=== PATIENT | male | born 1985 | race Caucasian/White ===

== ENCOUNTER 2017-07-23 04:36 | Inpatient (IN) | payer OTHER ==
[~2017-07-23] VITALS: Ht 185.4 cm
[~2017-07-23 04:36] MED LIST: IBUP800T23 PO; LORTA5 PO; ULTR50TA PO
[2017-07-23 04:39] VITALS: BP 113/66; PULSE 85; RESP 18; TEMP 98.1; O2SAT 97
[2017-07-23] MEDS ORDERED: GENTAMICIN 80 MG PREMIX 100 ML IV ONE (04:45)
[2017-07-23] MEDS ORDERED: ceFAZolin 2 GM PREMIX 50 ML IV ONE (04:45)
[2017-07-23] MEDS ORDERED: TETANUS/DIPHTHERIA TOXOID ADULT 0.5 ML VIAL IM ONE (04:45)
[2017-07-23 04:49] VITALS: O2SAT 97
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
[2017-07-23] MEDS ORDERED: MORPHINE SULFATE 4 MG/ML INJ IV PUSH ONE (05:00)
[2017-07-23] MEDS ORDERED: SODIUM CHLOR 0.9% 1000 ML INJ 1,000 ML IV ONE (05:00)
[2017-07-23 05:09] LABS: AUTOMATED NEUTROPHIL # 17.9 TH/MM3 (1.8-7.7); BASOPHIL # 0.1 TH/MM3 (0-0.2); BASOPHIL % 0.3 % (0.0-2.0); EOSINOPHIL # 0.2 TH/MM3 (0-0.4); EOSINOPHIL % 0.8 % (0.0-4.0); HEMATOCRIT 39.6 % (39.0-51.0); HEMOGLOBIN 13.2 GM/DL (13.0-17.0); LYMPH % 16.7 % (9.0-44.0); MEAN CELL VOLUME 87.5 FL (80.0-100.0); MEAN CORPUSCULAR HEMOGLOBIN 29.2 PG (27.0-34.0); MEAN CORPUSCULAR HGB CONC 33.4 % (32.0-36.0); MEAN PLATELET VOLUME 8.2 FL (7.0-11.0); MONO % 7.1 % (0.0-8.0); MONOCYTE # 1.7 TH/MM3 (0-0.9); NEUT % 75.1 % (16.0-70.0); PLATELET COUNT 338 TH/MM3 (150-450); RED BLOOD COUNT 4.53 MIL/MM3 (4.50-5.90); RED CELL DISTRIBUTION WIDTH 13.3 % (11.6-17.2); WHITE BLOOD COUNT 23.8 TH/MM3 (4.0-11.0)
[2017-07-23 05:18] LABS: PROTHROMBIN TIME - PATIENT 10.3 SEC (9.8-11.6)
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
[2017-07-23 06:00] VITALS: BP 115/67; PULSE 100; RESP 16; O2SAT 98
[2017-07-23] MEDS ORDERED: GENTAMICIN INJ 80 MG in SODIUM CHLORIDE 0.9% INJ 100 ML IV ONE (06:15)
[2017-07-23] MEDS ORDERED: LACTATED RINGER'S 1000 ML INJ 1,000 ML IV SCH (06:22)
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
[2017-07-23] MEDS ORDERED: CHLORHEXIDINE GLUCONATE 2 % 1 PACK (2 CLOTHS) TOP PRN (06:30)
[2017-07-23] MEDS ORDERED: HYDROmorphone HCL PF 0.5 MG/0.5 ML SYRINGE IV PRN (06:30)
[2017-07-23] MEDS ORDERED: NURSING INFORMATION XX SCH (06:30)
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
[2017-07-23] MEDS ORDERED: GENTAMICIN SULFATE 80 MG/2 ML VIAL ONE ×3 (06:36→09:39)
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
[2017-07-23] MEDS ORDERED: METOPROLOL TARTRATE 25 MG TAB PO PRN (07:15)
[2017-07-23] MEDS ORDERED: LACTATED RINGER'S 1000 ML IV PRN (07:15)
[2017-07-23] MEDS ORDERED: SODIUM CHLORID 0.9% 500 ML IV PRN (07:15)
[2017-07-23] MEDS ORDERED: HYDROmorphone HCL PF 2 MG/ML VIAL ONE (07:21)
[2017-07-23] MEDS ORDERED: ACETAMINOPHEN 1000 MG/100 ML 100 ML IV ONE (07:21)
[2017-07-23] MEDS ORDERED: fentaNYL CITRATE 250 MCG/5 ML AMP ONE (07:21)
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
[2017-07-23] MEDS ORDERED: BUPIVACAINE HCL PF 0.5% 30 ML VIAL ONE (07:42)
[2017-07-23] MEDS ORDERED: cefTRIAXone INJ 1,000 MG in SODIUM CHLORIDE 0.9% INJ 100 ML IV SCH (08:00)
[2017-07-23] MEDS ORDERED: DOCUSATE SODIUM 100 MG CAP PO SCH (09:00)
[2017-07-23] MEDS ORDERED: Post-op Orders (for Pharmacy) XX ONE (10:45)
[2017-07-23] MEDS ORDERED: diphenhydrAMINE HCL 25 MG CAP PO PRN (10:45)
--- NOTE | 2017-07-23 10:56 | HHI.PR ---
Immediate Post Op Note Procedure Date: July 23, 2017 Pre Op Diagnosis: LEFT FOOT: First metatarsal head fracture Second MPJ dislocation, second PIPJ dislocation Third MPJ dislocation, third proximal phalanx fracture Fourth MPJ dislocation Fifth MPJ dislocation Fifth metatarsal shaft fracture Post Op Diagnosis: LEFT FOOT: First metatarsal head fracture Second MPJ dislocation, second PIPJ dislocation Third MPJ dislocation, third proximal phalanx fracture Fourth MPJ dislocation Fifth MPJ dislocation Fifth metatarsal shaft fracture Surgeon: Stephanie Frederick Early Morning Babysitter(s): None Procedure: Open reduction internal fixation/external fixation of left foot fractures Findings: None Additional Information: None Complications: None Specimen(s) removed: None Anesthesia: General Drains: Auberry IVF Patient to: PACU Patient Condition: Stephanie Sainz DPM July 23, 2017 10:56
[2017-07-23] MEDS ORDERED: MIDAZOLAM HCL 2 MG/2 ML VIAL ONE (10:59)
[2017-07-23] MEDS ORDERED: MORPHINE SULFATE 4 MG/ML INJ ONE (11:00)
[2017-07-23] MEDS ORDERED: MEPERIDINE HCL 50 MG/ML VIAL ONE (11:05)
[2017-07-23] MEDS ORDERED: *morphine SULFATE 10 MG/ML PERIprocedure ONLY ONE (11:37)
[2017-07-23] MEDS ORDERED: LIDOCAINE HCL 1% PF 5 ML SYRINGE OTHER ONE (12:00)
[2017-07-23] MEDS ORDERED: PHENYLEPH/NS 1000 MCG/10 ML SYR IV ONE (12:00)
[2017-07-23] MEDS ORDERED: ONDANSETRON HCL 4 MG/2 ML VIAL IV PUSH ONE (12:00)
[2017-07-23] MEDS ORDERED: ROCURONIUM INJ 50 MG/5 ML SYRINGE IV PUSH ONE (12:00)
[2017-07-23] MEDS ORDERED: DEXAMETHASONE SOD PHOS 4 MG/ML VIAL IV ONE (12:00)
[2017-07-23] MEDS ORDERED: PROPOFOL 200 MG/20 ML AMP IV ONE (12:00)
[2017-07-23] MEDS ORDERED: LACTATED RINGER'S 1000 ML INJ 1,000 ML IV ONE (12:00)
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
[2017-07-23] MEDS ORDERED: DO NOT ADM ANY ANTICOAGULANT DRUGS PRN (12:15)
--- NOTE | 2017-07-23 14:06 | RADRPT ---
EXAM DATE: 07/23/2017 1:33 PM EDT AGE/SEX: 32 years / Male INDICATIONS: ORIF left foot. CLINICAL DATA: This is the patient's initial encounter. Patient reports that signs and symptoms have been present for 1 day and indicates a pain score of Nonresponsive. MEDICAL/SURGICAL HISTORY: Non-responsive. Non-responsive. COMPARISON: [facility] [place], FOOT LEFT COMPLETE ([id number]), 07/23/2017. . FINDINGS: Multiple fluoroscopic views of the left foot demonstrate interval pinning of multiple phalangeal frac ture dislocations. There is near-anatomic alignment at MTP joints. The second and third proximal phal anges are slightly laterally displaced. The fifth metatarsophalangeal fracture has not been present a lthough the MTP joint now appears nearly anatomic on the AP view. CONCLUSION: 1. Interval ORIF of multiple fracture dislocations in the left foot, as above. Electronically signed by: Brady Dickson MD 07/23/2017 2:05 PM EDT
[2017-07-23] MEDS: HYDROmorphone HCL PF 0.5 MG/0.5 ML SYRINGE IV PRN ×3 (15:00→21:58)
[2017-07-23 15:40] VITALS: BP 119/74; PULSE 106; RESP 19; TEMP 97.9; O2SAT 96
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
[2017-07-23] MEDS: GENTAMICIN INJ 80 MG in SODIUM CHLORIDE 0.9% INJ 100 ML IV SCH ×2 (18:42→21:58)
[2017-07-23] MEDS: ceFAZolin 2 GM PREMIX 50 ML IV SCH ×2 (18:43→23:38)
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
[2017-07-23 20:00] VITALS: BP 119/65; PULSE 106; RESP 17; TEMP 98.3; O2SAT 96
[2017-07-23] MEDS: GABAPENTIN 300 MG CAP PO SCH (21:01)
[2017-07-23] MEDS: DOCUSATE SODIUM 50 MG/SENNA 8.6 MG TAB PO SCH (21:02)
[2017-07-23] MEDS: CLINDAMYCIN INJ 600 MG in SODIUM CHLORIDE 0.9% INJ 50 ML IV SCH ×2 (21:58→22:12)
[2017-07-23] MEDS: oxyCODONE/ACETAMINOPHEN 10 MG/325 MG TAB PO PRN (21:58)
[2017-07-23] MEDS: ENOXAPARIN SODIUM 40 MG/0.4 ML SYRINGE SQ SCH (23:29)
[2017-07-24] VITALS (8 sets, daily range): BP systolic 124–141; BP diastolic 61–68; PULSE 60–107; RESP 17–19; TEMP 97.2–98.5; O2SAT 89–100
[2017-07-24] MEDS: HYDROmorphone HCL PF 0.5 MG/0.5 ML SYRINGE IV PRN ×7 (01:01→23:45)
[2017-07-24] MEDS: oxyCODONE/ACETAMINOPHEN 10 MG/325 MG TAB PO PRN ×6 (02:22→22:59)
[2017-07-24] MEDS ORDERED: CHLORHEXIDINE GLUCONATE 2 % 1 PACK (2 CLOTHS) TOP SCH (04:00)
[2017-07-24] MEDS: GENTAMICIN INJ 80 MG in SODIUM CHLORIDE 0.9% INJ 100 ML IV SCH ×3 (05:07→21:01)
[2017-07-24] MEDS: CLINDAMYCIN INJ 600 MG in SODIUM CHLORIDE 0.9% INJ 50 ML IV SCH ×3 (05:07→21:01)
[2017-07-24 07:11] LABS: AUTOMATED NEUTROPHIL # 8.5 TH/MM3 (1.8-7.7); BASOPHIL % 0.1 % (0.0-2.0); HEMATOCRIT 33.4 % (39.0-51.0); HEMOGLOBIN 11.1 GM/DL (13.0-17.0); LYMPH % 9.5 % (9.0-44.0); LYMPHOCYTE # 1.1 TH/MM3 (1.0-4.8); MEAN CELL VOLUME 89.3 FL (80.0-100.0); MEAN CORPUSCULAR HEMOGLOBIN 29.6 PG (27.0-34.0); MEAN CORPUSCULAR HGB CONC 33.2 % (32.0-36.0); MEAN PLATELET VOLUME 8.8 FL (7.0-11.0); MONO % 16.6 % (0.0-8.0); MONOCYTE # 1.9 TH/MM3 (0-0.9); NEUT % 73.8 % (16.0-70.0); PLATELET COUNT 263 TH/MM3 (150-450); RED BLOOD COUNT 3.74 MIL/MM3 (4.50-5.90); RED CELL DISTRIBUTION WIDTH 13.5 % (11.6-17.2); WHITE BLOOD COUNT 11.6 TH/MM3 (4.0-11.0)
[2017-07-24 07:35] LABS: BICARBONATE 25.9 MEQ/L (21.0-32.0); CALCIUM 8.2 MG/DL (8.5-10.1); CREATININE 0.97 MG/DL (0.60-1.30)
[2017-07-24] MEDS: ceFAZolin 2 GM PREMIX 50 ML IV SCH ×2 (07:37→16:09)
[2017-07-24] MEDS: METHOCARBAMOL 500 MG TAB PO SCH ×3 (07:39→21:00)
[2017-07-24] MEDS: DOCUSATE SODIUM 50 MG/SENNA 8.6 MG TAB PO SCH ×2 (07:39→21:00)
[2017-07-24] MEDS: ACETAMINOPHEN 1000 MG/100 ML 100 ML IV SCH ×3 (07:39→21:00)
[2017-07-24] MEDS: GABAPENTIN 300 MG CAP PO SCH ×3 (07:39→18:33)
[2017-07-24] MEDS: fentaNYL 50 MCG/HR PATCH T-DERMAL SCH (07:40)
[2017-07-24] MEDS: BACITRACIN/POLYMYXIN B 15 GM TUBE TOPICAL SCH (08:03)
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
[2017-07-24] MEDS: ALPRAZolam 0.5 MG TAB PO PRN ×2 (12:38→18:32)
[2017-07-24] MEDS ORDERED: WALKER WHEELS/F1 MIS (13:50)
[2017-07-24] MEDS ORDERED: PERI PO (13:50)
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
[2017-07-24] MEDS: ENOXAPARIN SODIUM 40 MG/0.4 ML SYRINGE SQ SCH (22:45)
[2017-07-25] MEDS: ceFAZolin 2 GM PREMIX 50 ML IV SCH ×4 (00:27→22:59)
[2017-07-25] MEDS: ACETAMINOPHEN 1000 MG/100 ML 100 ML IV SCH (02:12)
[2017-07-25] MEDS: oxyCODONE/ACETAMINOPHEN 10 MG/325 MG TAB PO PRN ×3 (03:20→21:29)
[2017-07-25] MEDS: ALPRAZolam 0.5 MG TAB PO PRN ×2 (03:20→21:29)
[2017-07-25 04:16] LABS: AUTOMATED NEUTROPHIL # 7.8 TH/MM3 (1.8-7.7); BASOPHIL % 0.4 % (0.0-2.0); EOSINOPHIL # 0.1 TH/MM3 (0-0.4); EOSINOPHIL % 0.5 % (0.0-4.0); HEMATOCRIT 31.7 % (39.0-51.0); HEMOGLOBIN 10.6 GM/DL (13.0-17.0); LYMPH % 17.6 % (9.0-44.0); MEAN CELL VOLUME 88.1 FL (80.0-100.0); MEAN CORPUSCULAR HEMOGLOBIN 29.3 PG (27.0-34.0); MEAN CORPUSCULAR HGB CONC 33.2 % (32.0-36.0); MEAN PLATELET VOLUME 8.5 FL (7.0-11.0); MONO % 12.2 % (0.0-8.0); MONOCYTE # 1.4 TH/MM3 (0-0.9); NEUT % 69.3 % (16.0-70.0); PLATELET COUNT 261 TH/MM3 (150-450); RED CELL DISTRIBUTION WIDTH 13.4 % (11.6-17.2); WHITE BLOOD COUNT 11.2 TH/MM3 (4.0-11.0)
[2017-07-25 04:42] LABS: BICARBONATE 28.5 MEQ/L (21.0-32.0); CALCIUM 7.8 MG/DL (8.5-10.1); CREATININE 1.05 MG/DL (0.60-1.30)
[2017-07-25 04:46] VITALS: BP 123/68; PULSE 110; RESP 19; TEMP 98.5; O2SAT 95
[2017-07-25] MEDS ORDERED: LACTATED RINGER'S 1000 ML IV PRN (05:00)
[2017-07-25] MEDS ORDERED: SODIUM CHLORID 0.9% 500 ML IV PRN (05:00)
[2017-07-25] MEDS ORDERED: CHLORHEXIDINE GLUCONATE 2 % 1 PACK (2 CLOTHS) TOPICAL PRN (05:00)
[2017-07-25] MEDS ORDERED: METOPROLOL TARTRATE 25 MG TAB PO PRN (05:00)
[2017-07-25] MEDS: METHOCARBAMOL 500 MG TAB PO SCH ×3 (05:03→20:04)
[2017-07-25] MEDS: GENTAMICIN INJ 80 MG in SODIUM CHLORIDE 0.9% INJ 100 ML IV SCH ×3 (05:04→20:04)
[2017-07-25] MEDS: CLINDAMYCIN INJ 600 MG in SODIUM CHLORIDE 0.9% INJ 50 ML IV SCH (05:29)
[2017-07-25] MEDS ORDERED: MAGN30S PO (07:40)
[2017-07-25] MEDS: HYDROmorphone HCL PF 0.5 MG/0.5 ML SYRINGE IV PRN ×4 (07:52→22:59)
[2017-07-25] MEDS: GABAPENTIN 300 MG CAP PO SCH ×2 (07:58→16:39)
[2017-07-25 08:00] VITALS: BP 116/76; PULSE 99; RESP 18; TEMP 98.1; O2SAT 97
[2017-07-25] MEDS: BACITRACIN/POLYMYXIN B 15 GM TUBE TOPICAL SCH (08:00)
[2017-07-25] MEDS: MAGNESIUM HYDROXIDE SUSP 30 ML CUP PO SCH ×2 (08:01→20:04)
[2017-07-25] MEDS: DOCUSATE SODIUM 50 MG/SENNA 8.6 MG TAB PO SCH ×2 (08:01→20:04)
[2017-07-25] MEDS ORDERED: GENTAMICIN SULFATE 80 MG/2 ML VIAL ONE ×2 (08:19→13:45)
[2017-07-25] MEDS ORDERED: BUPIVACAINE/EPINEPHRINE 0.5% PF 10 ML VIAL ONE (08:19)
[2017-07-25] MEDS ORDERED: ceFAZolin 2 GM PREMIX 0 ML ONE (08:19)
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
[2017-07-25] MEDS ORDERED: BUPIVACAINE HCL PF 0.25% 30 ML VIAL ONE (11:10)
[2017-07-25] MEDS ORDERED: PROPOFOL 200 MG/20 ML AMP IV ONE (12:00)
[2017-07-25] MEDS ORDERED: NEOSTIGMINE 5 MG/5 ML SYRINGE IV PUSH ONE (12:00)
[2017-07-25] MEDS ORDERED: LIDOCAINE HCL 1% PF 5 ML SYRINGE OTHER ONE (12:00)
[2017-07-25] MEDS ORDERED: ROCURONIUM INJ 50 MG/5 ML SYRINGE IV PUSH ONE (12:00)
[2017-07-25] MEDS ORDERED: GLYCOPYRROLATE 1 MG/5 ML SYRINGE IV PUSH ONE (12:00)
[2017-07-25] MEDS ORDERED: ONDANSETRON HCL 4 MG/2 ML VIAL IV PUSH ONE (12:00)
[2017-07-25] MEDS ORDERED: DEXAMETHASONE SOD PHOS 4 MG/ML VIAL IV ONE (12:00)
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
[2017-07-25] MEDS ORDERED: NITROGLYCERIN 2% OINT 1 GM PACKET ONE (13:20)
[2017-07-25] MEDS ORDERED: BACITRACIN TOP OINT 15 GM TUBE ONE (13:41)
[2017-07-25] MEDS ORDERED: DO NOT ADM ANY ANTICOAGULANT DRUGS PRN (13:54)
[2017-07-25] MEDS: CLINDAMYCIN 600 MG/NS PREMIX 50 ML IV SCH ×2 (14:00→21:29)
--- NOTE | 2017-07-25 14:03 | HHI.PR ---
Immediate Post Op Note Procedure Date: July 25, 2017 Pre Op Diagnosis: LEFT FOOT: First metatarsal head fracture Second MPJ dislocation, second PIPJ dislocation Third MPJ dislocation, third proximal phalanx fracture Fourth MPJ dislocation Fifth MPJ dislocation Fifth metatarsal shaft fracture Post Op Diagnosis: LEFT FOOT: First metatarsal head fracture Second MPJ dislocation, second PIPJ dislocation Third MPJ dislocation, third proximal phalanx fracture Fourth MPJ dislocation Fifth MPJ dislocation Fifth metatarsal shaft fracture Surgeon: Stephanie Frederick Park Attendant(s): None Procedure: Department and irrigation of open fracture left foot Left foot first metatarsal ORIF Left foot fifth metatarsal ORIF Findings: None Complications: None Specimen(s) removed: None Estimated blood loss: Less than 20 cc Anesthesia: General Drains: None Patient to: PACU Patient Condition: Good (Vital signs stable and neurovascular status intact to left foot, left third digit nitro placed applied secondary to sluggish capillary refill) Stephanie Frederick DPM July 25, 2017 14:03
[2017-07-25] MEDS ORDERED: MIDAZOLAM HCL 2 MG/2 ML VIAL ONE (14:06)
[2017-07-25] MEDS ORDERED: MORPHINE SULFATE 4 MG/ML INJ ONE (14:06)
[2017-07-25] MEDS ORDERED: Post-op Orders (for Pharmacy) XX ONE (14:15)
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
[2017-07-25 16:00] VITALS: BP 134/69; PULSE 98; RESP 18; TEMP 99.3; O2SAT 98
[2017-07-25] MEDS: TAMSULOSIN HCL 0.4 MG CAP PO SCH (16:38)
[2017-07-25 20:00] VITALS: BP 121/60; PULSE 100; RESP 22; TEMP 98.2; O2SAT 98
[2017-07-26] VITALS: BP 117/59; PULSE 92; RESP 20; TEMP 98.4; O2SAT 99
[2017-07-26] MEDS: ENOXAPARIN SODIUM 40 MG/0.4 ML SYRINGE SQ SCH (01:53)
[2017-07-26] MEDS: oxyCODONE/ACETAMINOPHEN 10 MG/325 MG TAB PO PRN ×4 (01:53→20:27)
[2017-07-26] MEDS: ALPRAZolam 0.5 MG TAB PO PRN ×3 (03:06→23:25)
[2017-07-26] MEDS: HYDROmorphone HCL PF 0.5 MG/0.5 ML SYRINGE IV PRN ×6 (03:06→21:24)
[2017-07-26 04:00] VITALS: BP 120/70; PULSE 89; RESP 20; TEMP 97.9; O2SAT 99
[2017-07-26 04:16] LABS: AUTOMATED NEUTROPHIL # 12.8 TH/MM3 (1.8-7.7); BASOPHIL % 0.2 % (0.0-2.0); HEMATOCRIT 28.5 % (39.0-51.0); HEMOGLOBIN 9.9 GM/DL (13.0-17.0); LYMPH % 7.1 % (9.0-44.0); LYMPHOCYTE # 1.1 TH/MM3 (1.0-4.8); MEAN CELL VOLUME 87.8 FL (80.0-100.0); MEAN CORPUSCULAR HEMOGLOBIN 30.5 PG (27.0-34.0); MEAN CORPUSCULAR HGB CONC 34.7 % (32.0-36.0); MEAN PLATELET VOLUME 8.6 FL (7.0-11.0); MONO % 8.2 % (0.0-8.0); MONOCYTE # 1.2 TH/MM3 (0-0.9); NEUT % 84.5 % (16.0-70.0); PLATELET COUNT 298 TH/MM3 (150-450); RED BLOOD COUNT 3.25 MIL/MM3 (4.50-5.90); WHITE BLOOD COUNT 15.1 TH/MM3 (4.0-11.0)
[2017-07-26 04:49] LABS: BICARBONATE 30.1 MEQ/L (21.0-32.0); CALCIUM 8.8 MG/DL (8.5-10.1); CREATININE 0.96 MG/DL (0.60-1.30)
[2017-07-26] MEDS: GENTAMICIN INJ 80 MG in SODIUM CHLORIDE 0.9% INJ 100 ML IV SCH ×3 (05:40→22:14)
[2017-07-26] MEDS: METHOCARBAMOL 500 MG TAB PO SCH ×3 (05:40→22:08)
[2017-07-26] MEDS: CLINDAMYCIN 600 MG/NS PREMIX 50 ML IV SCH ×3 (06:21→21:24)
[2017-07-26 08:00] VITALS: BP 111/60; PULSE 73; RESP 20; TEMP 97.7; O2SAT 98
--- NOTE | 2017-07-26 08:12 | RADRPT ---
EXAM DATE: 07/25/2017 8:49 PM EDT AGE/SEX: 32 years / Male INDICATIONS: Open reduction internal fixation of the left foot. CLINICAL DATA: This is the patient's subsequent encounter. Patient reports that signs and symptoms h ave been present for 3 days and indicates a pain score of Nonresponsive. MEDICAL/SURGICAL HISTORY: None. . Left foot pinning. COMPARISON: [facility] [place], FOOT LEFT LIMITED (2VWS), 07/23/2017. . FINDINGS: Patient is status post internal fixation of the first metatarsal and the fifth metatarsal. There is g ood alignment of the bony structures and the hardware. The hardware is intact. There are pins noted i n the second, third and fourth digits. CONCLUSION: Good alignment and position on this postoperative study. Electronically signed by: Yousif Tellez MD 07/26/2017 8:11 AM EDT
[2017-07-26] MEDS: DOCUSATE SODIUM 50 MG/SENNA 8.6 MG TAB PO SCH ×2 (08:38→20:26)
[2017-07-26] MEDS: TAMSULOSIN HCL 0.4 MG CAP PO SCH (08:38)
[2017-07-26] MEDS: GABAPENTIN 300 MG CAP PO SCH (08:38)
[2017-07-26] MEDS: MAGNESIUM HYDROXIDE SUSP 30 ML CUP PO SCH ×2 (08:46→20:26)
[2017-07-26] MEDS: ceFAZolin 2 GM PREMIX 50 ML IV SCH ×3 (08:46→23:25)
[2017-07-26] MEDS: BACITRACIN/POLYMYXIN B 15 GM TUBE TOPICAL SCH (08:53)
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
[2017-07-26] MEDS: GABAPENTIN 400 MG CAP PO SCH ×2 (11:45→17:19)
[2017-07-26] MEDS: SODIUM CHLORIDE 0.9% FLUSH 10 ML FLUSH IVF PRN (11:50)
[2017-07-26 12:00] VITALS: BP 118/58; PULSE 97; RESP 20; TEMP 97.4; O2SAT 99
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
[2017-07-26 16:00] VITALS: BP 113/65; PULSE 87; RESP 19; TEMP 98.7; O2SAT 97
[2017-07-26 20:00] VITALS: BP 116/61; PULSE 85; RESP 18; TEMP 98.4; O2SAT 95
[2017-07-26] MEDS: NITROGLYCERIN 2% OINT 1 GM PACKET TOPICAL SCH (22:13)
[2017-07-27] VITALS: BP 125/68; PULSE 79; RESP 18; TEMP 97.8; O2SAT 94
[2017-07-27] MEDS: HYDROmorphone HCL PF 0.5 MG/0.5 ML SYRINGE IV PRN ×6 (00:41→22:03)
[2017-07-27] MEDS: oxyCODONE/ACETAMINOPHEN 10 MG/325 MG TAB PO PRN ×4 (01:34→21:19)
[2017-07-27] MEDS: ENOXAPARIN SODIUM 40 MG/0.4 ML SYRINGE SQ SCH (01:36)
[2017-07-27 04:00] VITALS: BP 122/76; PULSE 84; RESP 16; TEMP 97.8; O2SAT 95
[2017-07-27] MEDS: NITROGLYCERIN 2% OINT 1 GM PACKET TOPICAL SCH ×3 (06:08→21:13)
[2017-07-27] MEDS: CLINDAMYCIN 600 MG/NS PREMIX 50 ML IV SCH ×3 (06:08→21:13)
[2017-07-27] MEDS: METHOCARBAMOL 500 MG TAB PO SCH ×3 (06:08→21:13)
[2017-07-27] MEDS: GENTAMICIN INJ 80 MG in SODIUM CHLORIDE 0.9% INJ 100 ML IV SCH ×3 (06:08→21:13)
[2017-07-27] MEDS ORDERED: REMOVE OLD DURAGESIC (FENTANYL) PATCH T-DERMAL SCH (07:15)
[2017-07-27 08:00] VITALS: BP 119/60; PULSE 89; RESP 15; TEMP 97.8; O2SAT 98
[2017-07-27] MEDS: GABAPENTIN 400 MG CAP PO SCH (08:36)
[2017-07-27] MEDS: TAMSULOSIN HCL 0.4 MG CAP PO SCH (08:36)
[2017-07-27] MEDS: ceFAZolin 2 GM PREMIX 50 ML IV SCH ×3 (08:36→23:23)
[2017-07-27] MEDS: MAGNESIUM HYDROXIDE SUSP 30 ML CUP PO SCH ×2 (08:36→21:12)
[2017-07-27] MEDS: fentaNYL 50 MCG/HR PATCH T-DERMAL SCH (08:37)
[2017-07-27] MEDS: DOCUSATE SODIUM 50 MG/SENNA 8.6 MG TAB PO SCH ×2 (08:38→21:13)
[2017-07-27] MEDS: ALPRAZolam 0.5 MG TAB PO PRN ×3 (08:46→22:05)
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
[2017-07-27] MEDS: BACITRACIN/POLYMYXIN B 15 GM TUBE TOPICAL SCH (10:35)
[2017-07-27 12:00] VITALS: BP 118/70; PULSE 82; RESP 16; TEMP 98.1; O2SAT 94
[2017-07-27] MEDS ORDERED: WHEEMIS3 (12:40)
[2017-07-27] MEDS: GABAPENTIN 300 MG CAP PO SCH ×2 (14:48→18:08)
[2017-07-27 16:00] VITALS: BP 130/62; PULSE 92; RESP 16; TEMP 98.1; O2SAT 95
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
[2017-07-27 20:00] VITALS: BP 121/56; PULSE 89; RESP 17; TEMP 98.4; O2SAT 98
[2017-07-28] VITALS (7 sets, daily range): BP systolic 113–137; BP diastolic 56–69; PULSE 83–108; RESP 17–18; TEMP 97.6–99.1; O2SAT 93–99
[2017-07-28] MEDS: oxyCODONE/ACETAMINOPHEN 10 MG/325 MG TAB PO PRN ×6 (01:39→21:49)
[2017-07-28] MEDS: ENOXAPARIN SODIUM 40 MG/0.4 ML SYRINGE SQ SCH (01:39)
[2017-07-28] MEDS: HYDROmorphone HCL PF 0.5 MG/0.5 ML SYRINGE IV PRN ×6 (03:18→23:22)
[2017-07-28 04:17] LABS: BASOPHIL % 0.5 % (0.0-2.0); EOSINOPHIL # 0.2 TH/MM3 (0-0.4); EOSINOPHIL % 1.6 % (0.0-4.0); HEMATOCRIT 30.1 % (39.0-51.0); HEMOGLOBIN 10.3 GM/DL (13.0-17.0); LYMPH % 22.5 % (9.0-44.0); LYMPHOCYTE # 2.4 TH/MM3 (1.0-4.8); MEAN CELL VOLUME 87.2 FL (80.0-100.0); MEAN CORPUSCULAR HEMOGLOBIN 29.8 PG (27.0-34.0); MEAN CORPUSCULAR HGB CONC 34.2 % (32.0-36.0); MEAN PLATELET VOLUME 7.9 FL (7.0-11.0); MONO % 9.2 % (0.0-8.0); NEUT % 66.2 % (16.0-70.0); PLATELET COUNT 404 TH/MM3 (150-450); RED BLOOD COUNT 3.46 MIL/MM3 (4.50-5.90); RED CELL DISTRIBUTION WIDTH 12.9 % (11.6-17.2); WHITE BLOOD COUNT 10.6 TH/MM3 (4.0-11.0)
[2017-07-28 04:39] LABS: BICARBONATE 28.8 MEQ/L (21.0-32.0); CALCIUM 8.5 MG/DL (8.5-10.1); CREATININE 0.91 MG/DL (0.60-1.30)
[2017-07-28] MEDS: METHOCARBAMOL 500 MG TAB PO SCH ×3 (05:58→21:49)
[2017-07-28] MEDS: GENTAMICIN INJ 80 MG in SODIUM CHLORIDE 0.9% INJ 100 ML IV SCH ×3 (05:58→21:47)
[2017-07-28] MEDS: CLINDAMYCIN 600 MG/NS PREMIX 50 ML IV SCH ×3 (05:58→21:47)
[2017-07-28] MEDS: NITROGLYCERIN 2% OINT 1 GM PACKET TOPICAL SCH ×3 (05:58→21:50)
[2017-07-28] MEDS: TAMSULOSIN HCL 0.4 MG CAP PO SCH (08:48)
[2017-07-28] MEDS: MAGNESIUM HYDROXIDE SUSP 30 ML CUP PO SCH ×2 (08:49→19:20)
[2017-07-28] MEDS: LACTULOSE SYRUP 20 GM/30 ML CUP PO SCH (08:49)
[2017-07-28] MEDS: ceFAZolin 2 GM PREMIX 50 ML IV SCH ×3 (08:49→23:21)
[2017-07-28] MEDS: GABAPENTIN 300 MG CAP PO SCH ×3 (08:49→17:45)
[2017-07-28] MEDS: FAMOTIDINE 20 MG TAB PO SCH ×2 (08:49→19:20)
[2017-07-28] MEDS: BACITRACIN/POLYMYXIN B 15 GM TUBE TOPICAL SCH (08:50)
[2017-07-28] MEDS: DOCUSATE SODIUM 50 MG/SENNA 8.6 MG TAB PO SCH ×2 (09:00→19:20)
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
[2017-07-29] VITALS (7 sets, daily range): BP systolic 117–138; BP diastolic 58–74; PULSE 74–98; RESP 16–18; TEMP 97.6–98.7; O2SAT 94–98
[2017-07-29] MEDS: ALPRAZolam 0.5 MG TAB PO PRN ×4 (01:58→21:20)
[2017-07-29] MEDS: ENOXAPARIN SODIUM 40 MG/0.4 ML SYRINGE SQ SCH ×2 (01:58→22:57)
[2017-07-29] MEDS: oxyCODONE/ACETAMINOPHEN 10 MG/325 MG TAB PO PRN ×6 (01:58→21:20)
[2017-07-29] MEDS: HYDROmorphone HCL PF 0.5 MG/0.5 ML SYRINGE IV PRN ×4 (03:51→23:40)
[2017-07-29] MEDS: CLINDAMYCIN 600 MG/NS PREMIX 50 ML IV SCH ×3 (05:08→19:33)
[2017-07-29] MEDS: GENTAMICIN INJ 80 MG in SODIUM CHLORIDE 0.9% INJ 100 ML IV SCH ×3 (05:09→21:20)
[2017-07-29] MEDS: METHOCARBAMOL 500 MG TAB PO SCH ×3 (06:01→21:20)
[2017-07-29] MEDS: NITROGLYCERIN 2% OINT 1 GM PACKET TOPICAL SCH ×3 (06:02→21:21)
[2017-07-29] MEDS ORDERED: MAGNESIUM CITRATE SOLN 300 ML BTL PO ONE (07:00)
[2017-07-29] MEDS: GABAPENTIN 300 MG CAP PO SCH ×4 (08:06→19:32)
[2017-07-29] MEDS: FAMOTIDINE 20 MG TAB PO SCH ×2 (08:06→19:32)
[2017-07-29] MEDS: TAMSULOSIN HCL 0.4 MG CAP PO SCH (08:06)
[2017-07-29] MEDS: DOCUSATE SODIUM 50 MG/SENNA 8.6 MG TAB PO SCH ×2 (08:06→19:33)
[2017-07-29] MEDS: ceFAZolin 2 GM PREMIX 50 ML IV SCH ×3 (08:08→23:40)
[2017-07-29] MEDS: MAGNESIUM HYDROXIDE SUSP 30 ML CUP PO SCH ×2 (08:15→19:33)
[2017-07-29] MEDS: LACTULOSE SYRUP 20 GM/30 ML CUP PO SCH (08:15)
[2017-07-29] MEDS: BACITRACIN/POLYMYXIN B 15 GM TUBE TOPICAL SCH (08:23)
[2017-07-29] MEDS: fentaNYL 75 MCG/HR PATCH T-DERMAL SCH (10:13)
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
[2017-07-29] MEDS ORDERED: SODIUM CHLORID 0.9% 500 ML IV PRN (21:15)
[2017-07-29] MEDS ORDERED: METOPROLOL TARTRATE 25 MG TAB PO PRN (21:15)
[2017-07-29] MEDS ORDERED: LACTATED RINGER'S 1000 ML IV PRN (21:15)
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
[2017-07-30] VITALS (7 sets, daily range): BP systolic 127–143; BP diastolic 60–82; PULSE 86–94; RESP 16–18; TEMP 97.2–98.4; O2SAT 98
[2017-07-30] MEDS: oxyCODONE/ACETAMINOPHEN 10 MG/325 MG TAB PO PRN ×6 (03:23→23:18)
[2017-07-30] MEDS: ALPRAZolam 0.5 MG TAB PO PRN ×4 (03:26→23:18)
[2017-07-30] MEDS: HYDROmorphone HCL PF 0.5 MG/0.5 ML SYRINGE IV PRN ×4 (04:43→16:36)
[2017-07-30] MEDS: NITROGLYCERIN 2% OINT 1 GM PACKET TOPICAL SCH ×4 (04:43→22:42)
[2017-07-30] MEDS: GENTAMICIN INJ 80 MG in SODIUM CHLORIDE 0.9% INJ 100 ML IV SCH ×3 (04:43→22:16)
[2017-07-30] MEDS: METHOCARBAMOL 500 MG TAB PO SCH ×3 (04:43→22:16)
[2017-07-30] MEDS: CLINDAMYCIN 600 MG/NS PREMIX 50 ML IV SCH ×3 (06:33→21:50)
[2017-07-30] MEDS: LACTULOSE SYRUP 20 GM/30 ML CUP PO SCH (06:59)
[2017-07-30] MEDS: MAGNESIUM HYDROXIDE SUSP 30 ML CUP PO SCH ×2 (06:59→21:00)
[2017-07-30] MEDS: DOCUSATE SODIUM 50 MG/SENNA 8.6 MG TAB PO SCH ×2 (07:55→21:00)
[2017-07-30] MEDS: FAMOTIDINE 20 MG TAB PO SCH ×2 (07:56→22:16)
[2017-07-30] MEDS: TAMSULOSIN HCL 0.4 MG CAP PO SCH (07:56)
[2017-07-30] MEDS: ceFAZolin 2 GM PREMIX 50 ML IV SCH ×3 (07:57→23:18)
[2017-07-30] MEDS: BACITRACIN/POLYMYXIN B 15 GM TUBE TOPICAL SCH (08:01)
[2017-07-30] MEDS: PREGABALIN 75 MG CAP PO SCH ×2 (11:30→22:16)
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
[2017-07-30] MEDS ORDERED: ONDANSETRON HCL 4 MG/2 ML VIAL IV ONE (12:00)
[2017-07-30] MEDS ORDERED: LIDOCAINE HCL 1% PF 5 ML SYRINGE OTHER ONE (12:00)
[2017-07-30] MEDS ORDERED: DEXAMETHASONE SOD PHOS 4 MG/ML VIAL IV ONE (12:00)
[2017-07-30] MEDS: IBUPROFEN 800 MG TAB PO SCH ×3 (12:00→22:16)
[2017-07-30] MEDS ORDERED: EPINEPHrine HCL (1:1000) 1 MG/ML VIAL IV ONE (12:00)
[2017-07-30] MEDS ORDERED: PROPOFOL 200 MG/20 ML AMP IV ONE (12:00)
[2017-07-30] MEDS ORDERED: BUPIVACAINE HCL PF 0.5% 30 ML VIAL ONE ×2 (13:54→20:00)
[2017-07-30] MEDS ORDERED: LIDOCAINE HCL 2% PF 10 ML VIAL ONE (13:54)
[2017-07-30] MEDS ORDERED: fentaNYL CITRATE 250 MCG/5 ML AMP ONE (19:53)
[2017-07-30] MEDS ORDERED: MIDAZOLAM HCL 2 MG/2 ML VIAL ONE (20:57)
--- NOTE | 2017-07-30 21:14 | HHI.PR ---
Immediate Post Op Note Procedure Date: July 30, 2017 Pre Op Diagnosis: Gangrene left 3rd toe Post Op Diagnosis: Same Surgeon: Arabella Fuller DPM Batchmaker(s): Staff Procedure: Amputation left 3rd toe Findings: Consistent with diagnosis. Left 3rd toe purple with no capillary refill and cool to touch and serous drainage present. Dorsal skin to medial forefoot and 2nd and 1st digits also with mottled appearance, but appears to be demarcating and remains warm to touch. Capillary refill delayed to digits 1 and 2. Digits 4 and 5 viable with brisk capillary refill. Two semielliptical incisions made encompassing left 3rd digit, followed by amputation in disarticulation at MPT joint level. Tissue at this level bled, but slowly. Tissue appears viable. Culture of wound and irrigation with 1L normal saline. No tourniquet utilized. Closure with 2-0 nylon suture, followed by dressing with xeroform, 4x4, abd, cast padding, posterior splint, gil with minimal compression. Nonweightbearing left foot Await demarcation of remaining tissue. Questionable viability of hallux, 2nd digit, and dorsal medial forefoot skin Additional Information: n/a Complications: None Specimen(s) removed: 1. culture left foot Estimated blood loss: minima, <10mL Anesthesia: General, Local (10mL 0.5% marcaine plain) Drains: None IVF Tourniquet time (min at mmHg) n/a Patient to: PACU Patient Condition: Good Date/Time of Procedure: SEE SURGICAL CARE RECORD Arabella Fuller DPM July 30, 2017 21:14
[2017-07-30] MEDS ORDERED: *morphine SULFATE 4 MG/ML PERIprocedure ONLY ONE (21:16)
[2017-07-30] MEDS ORDERED: *MEPERIDINE 25 MG INJ VIAL PERIprocedural Use ONLY ONE (21:16)
[2017-07-30] MEDS ORDERED: *morphine SULFATE 10 MG/ML PERIprocedure ONLY ONE (21:32)
--- NOTE | 2017-07-30 21:48 | RADRPT ---
EXAM DATE: 07/30/2017 9:35 PM EDT AGE/SEX: 32 years / Male INDICATIONS: Post ORIF left foot CLINICAL DATA: This is the patient's subsequent encounter. Patient reports that signs and symptoms h ave been present for 1 day and indicates a pain score of 0/10. MEDICAL/SURGICAL HISTORY: None. None. COMPARISON: Foot x-ray 07/23/2017. FINDINGS: 3 views of the left foot show interval amputation of the third toe. An orthopedic plate is seen invol ving the dorsal aspects of the first metatarsal with good alignment of the fracture. There is a nondi splaced fracture involving the distal phalanx of the great toe with good alignment. An orthopedic prakash te is seen involving the lateral cortical margin of the fifth metatarsal with good alignment of the f racture. K style wires traverse the fourth and second toes terminating in the distal metatarsal regio ns. CONCLUSION: Postoperative images with good alignment as detailed above. Electronically signed by: Cristiano Gonzales MD 07/30/2017 9:47 PM EDT
[2017-07-30] MEDS ORDERED: DO NOT ADM ANY ANTICOAGULANT DRUGS PRN (22:00)
[2017-07-30] MEDS: ENOXAPARIN SODIUM 40 MG/0.4 ML SYRINGE SQ SCH (22:07)
[2017-07-31] VITALS: BP 131/78; PULSE 86; RESP 18; TEMP 98.7; O2SAT 95
[2017-07-31] MEDS: HYDROmorphone HCL PF 0.5 MG/0.5 ML SYRINGE IV PRN ×5 (00:22→21:16)
[2017-07-31 04:00] VITALS: BP 116/70; PULSE 82; RESP 18; TEMP 97.7; O2SAT 95
[2017-07-31 04:23] LABS: AUTOMATED NEUTROPHIL # 10.9 TH/MM3 (1.8-7.7); BASOPHIL % 0.1 % (0.0-2.0); EOSINOPHIL % 0.1 % (0.0-4.0); HEMATOCRIT 32.1 % (39.0-51.0); LYMPH % 5.6 % (9.0-44.0); LYMPHOCYTE # 0.7 TH/MM3 (1.0-4.8); MEAN CELL VOLUME 86.6 FL (80.0-100.0); MEAN CORPUSCULAR HEMOGLOBIN 29.6 PG (27.0-34.0); MEAN CORPUSCULAR HGB CONC 34.2 % (32.0-36.0); MEAN PLATELET VOLUME 7.6 FL (7.0-11.0); MONO % 4.8 % (0.0-8.0); MONOCYTE # 0.6 TH/MM3 (0-0.9); NEUT % 89.4 % (16.0-70.0); PLATELET COUNT 511 TH/MM3 (150-450); RED CELL DISTRIBUTION WIDTH 12.6 % (11.6-17.2); WHITE BLOOD COUNT 12.2 TH/MM3 (4.0-11.0)
[2017-07-31] MEDS: GENTAMICIN INJ 80 MG in SODIUM CHLORIDE 0.9% INJ 100 ML IV SCH ×3 (04:33→21:16)
[2017-07-31] MEDS: IBUPROFEN 800 MG TAB PO SCH (04:33)
[2017-07-31] MEDS: METHOCARBAMOL 500 MG TAB PO SCH ×3 (04:33→21:16)
[2017-07-31] MEDS: oxyCODONE/ACETAMINOPHEN 10 MG/325 MG TAB PO PRN ×3 (04:34→14:36)
[2017-07-31 05:02] LABS: BICARBONATE 26.2 MEQ/L (21.0-32.0); CALCIUM 8.9 MG/DL (8.5-10.1); CREATININE 0.98 MG/DL (0.60-1.30)
[2017-07-31] MEDS: ALPRAZolam 0.5 MG TAB PO PRN ×2 (05:38→19:36)
[2017-07-31] MEDS: CLINDAMYCIN 600 MG/NS PREMIX 50 ML IV SCH ×3 (05:39→19:38)
[2017-07-31 08:00] VITALS: BP 122/70; PULSE 87; RESP 16; TEMP 97.7; O2SAT 97
[2017-07-31] MEDS: LACTULOSE SYRUP 20 GM/30 ML CUP PO SCH (09:00)
[2017-07-31] MEDS: MAGNESIUM HYDROXIDE SUSP 30 ML CUP PO SCH ×2 (09:00→19:36)
[2017-07-31] MEDS: ENOXAPARIN SODIUM 30 MG/0.3 ML SYRINGE SQ SCH ×2 (09:00→19:38)
[2017-07-31] MEDS: PREGABALIN 75 MG CAP PO SCH (09:17)
[2017-07-31] MEDS: FAMOTIDINE 20 MG TAB PO SCH ×2 (09:17→19:37)
[2017-07-31] MEDS: TAMSULOSIN HCL 0.4 MG CAP PO SCH (09:17)
[2017-07-31] MEDS: DOCUSATE SODIUM 50 MG/SENNA 8.6 MG TAB PO SCH ×2 (09:17→19:36)
[2017-07-31] MEDS: ceFAZolin 2 GM PREMIX 50 ML IV SCH ×3 (09:18→23:24)
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
[2017-07-31 12:00] VITALS: BP 119/71; PULSE 83; RESP 16; TEMP 97.5; O2SAT 94
[2017-07-31] MEDS: BACITRACIN/POLYMYXIN B 15 GM TUBE TOPICAL SCH (14:00)
[2017-07-31] MEDS: NITROGLYCERIN 2% OINT 1 GM PACKET TOPICAL SCH ×3 (14:00→21:47)
[2017-07-31 16:00] VITALS: BP_SYST 126; BP_SYST 127; BP_DIAS 55; BP_DIAS 65; PULSE 83; PULSE 88; RESP 16; TEMP 97.9; TEMP 98; O2SAT 96; O2SAT 98
[2017-07-31] MEDS ORDERED: HYDROmorphone HCL PF 2 MG/ML VIAL IV PUSH ONE (16:00)
[2017-07-31] MEDS: PREGABALIN 100 MG CAP PO SCH ×2 (17:15→21:16)
[2017-07-31] MEDS ORDERED: NON-FORMULARY DRUG ONE (19:15)
[2017-07-31 20:00] VITALS: BP 137/65; PULSE 78; RESP 18; TEMP 98.4; O2SAT 99
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
[2017-08-01] VITALS: BP 122/73; PULSE 89; RESP 18; TEMP 97.4; O2SAT 99
[2017-08-01] MEDS: ALPRAZolam 0.5 MG TAB PO PRN ×2 (01:30→12:32)
[2017-08-01] MEDS: HYDROmorphone HCL PF 0.5 MG/0.5 ML SYRINGE IV PRN ×5 (01:31→23:06)
[2017-08-01] MEDS: METHOCARBAMOL 500 MG TAB PO SCH ×3 (04:54→19:59)
[2017-08-01] MEDS: CLINDAMYCIN 600 MG/NS PREMIX 50 ML IV SCH ×3 (04:54→22:00)
[2017-08-01] MEDS: PREGABALIN 100 MG CAP PO SCH ×3 (04:54→22:00)
[2017-08-01] MEDS: fentaNYL 75 MCG/HR PATCH T-DERMAL SCH (06:13)
[2017-08-01] MEDS: GENTAMICIN INJ 80 MG in SODIUM CHLORIDE 0.9% INJ 100 ML IV SCH ×3 (06:13→20:02)
[2017-08-01] MEDS: REMOVE OLD DURAGESIC (FENTANYL) PATCH T-DERMAL SCH (06:13)
[2017-08-01 08:00] VITALS: BP 159/76; PULSE 87; RESP 18; TEMP 98.2; O2SAT 92
[2017-08-01] MEDS: TAMSULOSIN HCL 0.4 MG CAP PO SCH (09:44)
[2017-08-01] MEDS: DOCUSATE SODIUM 50 MG/SENNA 8.6 MG TAB PO SCH ×2 (09:44→19:59)
[2017-08-01] MEDS: FAMOTIDINE 20 MG TAB PO SCH ×2 (09:44→19:59)
[2017-08-01] MEDS: ENOXAPARIN SODIUM 30 MG/0.3 ML SYRINGE SQ SCH ×2 (09:47→19:59)
[2017-08-01] MEDS: BACITRACIN/POLYMYXIN B 15 GM TUBE TOPICAL SCH (09:48)
[2017-08-01] MEDS: MAGNESIUM HYDROXIDE SUSP 30 ML CUP PO SCH ×2 (10:15→19:59)
[2017-08-01] MEDS: ceFAZolin 2 GM PREMIX 50 ML IV SCH ×3 (10:16→23:06)
[2017-08-01] MEDS: LACTULOSE SYRUP 20 GM/30 ML CUP PO SCH (10:16)
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
[2017-08-01 11:58] VITALS: BP 121/67; PULSE 88; RESP 18; TEMP 98.5; O2SAT 93
[2017-08-01] MEDS: NITROGLYCERIN 2% OINT 1 GM PACKET TOPICAL SCH ×2 (14:00→22:00)
[2017-08-01 17:00] VITALS: BP 132/79; PULSE 86; RESP 18; TEMP 98.1; O2SAT 99
[2017-08-01 19:46] VITALS: BP 114/67; PULSE 93; RESP 19; TEMP 97.9; O2SAT 96
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
[2017-08-01 23:11] VITALS: BP 138/72; PULSE 92; RESP 19; TEMP 98.1; O2SAT 97
[2017-08-02] MEDS: METHOCARBAMOL 500 MG TAB PO SCH ×3 (04:30→22:06)
[2017-08-02] MEDS: ALPRAZolam 0.5 MG TAB PO PRN ×3 (04:30→21:21)
[2017-08-02 04:32] LABS: AUTOMATED NEUTROPHIL # 7.6 TH/MM3 (1.8-7.7); BASOPHIL % 0.4 % (0.0-2.0); EOSINOPHIL # 0.1 TH/MM3 (0-0.4); EOSINOPHIL % 1.3 % (0.0-4.0); HEMATOCRIT 31.1 % (39.0-51.0); HEMOGLOBIN 10.5 GM/DL (13.0-17.0); LYMPH % 16.7 % (9.0-44.0); LYMPHOCYTE # 1.8 TH/MM3 (1.0-4.8); MEAN CELL VOLUME 85.9 FL (80.0-100.0); MEAN CORPUSCULAR HEMOGLOBIN 28.9 PG (27.0-34.0); MEAN CORPUSCULAR HGB CONC 33.7 % (32.0-36.0); MEAN PLATELET VOLUME 7.4 FL (7.0-11.0); MONO % 12.6 % (0.0-8.0); MONOCYTE # 1.4 TH/MM3 (0-0.9); PLATELET COUNT 491 TH/MM3 (150-450); RED BLOOD COUNT 3.62 MIL/MM3 (4.50-5.90); RED CELL DISTRIBUTION WIDTH 12.8 % (11.6-17.2)
[2017-08-02] MEDS: HYDROmorphone HCL PF 0.5 MG/0.5 ML SYRINGE IV PRN ×4 (04:32→20:09)
[2017-08-02] MEDS: GENTAMICIN INJ 80 MG in SODIUM CHLORIDE 0.9% INJ 100 ML IV SCH ×3 (04:36→21:15)
[2017-08-02 05:03] LABS: CALCIUM 8.7 MG/DL (8.5-10.1); CREATININE 1.07 MG/DL (0.60-1.30)
[2017-08-02] MEDS: NITROGLYCERIN 2% OINT 1 GM PACKET TOPICAL SCH ×3 (05:31→22:06)
[2017-08-02] MEDS: PREGABALIN 100 MG CAP PO SCH ×3 (05:32→22:06)
[2017-08-02] MEDS: CLINDAMYCIN 600 MG/NS PREMIX 50 ML IV SCH ×3 (05:32→22:06)
[2017-08-02 08:00] VITALS: BP 132/77; PULSE 83; RESP 18; TEMP 98.1; O2SAT 98
[2017-08-02] MEDS: ceFAZolin 2 GM PREMIX 50 ML IV SCH ×3 (08:36→23:26)
[2017-08-02] MEDS: LACTULOSE SYRUP 20 GM/30 ML CUP PO SCH (08:36)
[2017-08-02] MEDS: TAMSULOSIN HCL 0.4 MG CAP PO SCH (08:37)
[2017-08-02] MEDS: DOCUSATE SODIUM 50 MG/SENNA 8.6 MG TAB PO SCH ×2 (08:37→20:08)
[2017-08-02] MEDS: ENOXAPARIN SODIUM 30 MG/0.3 ML SYRINGE SQ SCH ×2 (08:38→20:08)
[2017-08-02] MEDS: BACITRACIN/POLYMYXIN B 15 GM TUBE TOPICAL SCH (08:38)
[2017-08-02] MEDS: MAGNESIUM HYDROXIDE SUSP 30 ML CUP PO SCH ×2 (08:38→20:08)
[2017-08-02] MEDS: FAMOTIDINE 20 MG TAB PO SCH ×2 (08:38→20:08)
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
[2017-08-02 12:44] VITALS: BP 125/73; PULSE 92; RESP 18; TEMP 98.1; O2SAT 99
[2017-08-02 15:00] VITALS: BP 223/120; PULSE 101; RESP 19; TEMP 98.1; O2SAT 95
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
[2017-08-02 16:00] VITALS: BP_SYST 139; BP_SYST 193; BP_DIAS 109; BP_DIAS 82; PULSE 105; RESP 18; TEMP 98.3; O2SAT 98
--- NOTE | 2017-08-02 16:05 | PD.POD ---
Subjective Podiatric Problems Status post left foot open fracture debridement and irrigation with pinning left to second, third, fourth digits and ORIF left 1st and 5th metatarsals, Dr Frederick S/P left 3rd toe amputation 07/30/17 Dr Fuller Past Med/Surg/Social History Social History Smoking Status: Never Smoker Objective Vital Signs Vital Signs Date Time Temp Pulse Resp B/P (MAP) Pulse Ox O2 Delivery O2 Flow Rate FiO2 08/02/17 12:44 98.1 92 18 125/73 (90) 99 08/02/17 08:36 18 08/02/17 08:15 Room Air 08/02/17 08:00 98.1 83 18 132/77 (95) 98 08/02/17 06:09 18 08/02/17 05:10 17 08/01/17 23:11 98.1 92 19 138/72 (94) 97 08/01/17 19:46 97.9 93 19 114/67 (83) 96 08/01/17 17:00 98.1 86 18 132/79 (96) 99 Coded Allergies: iodine (Unverified Allergy, Severe, SWELLING, 07/23/17) potassium iodide (Unverified Allergy, Severe, SWELLING, 07/23/17) povidone-iodine (Unverified Allergy, Severe, SWELLING, 07/23/17) sodium iodide (Unverified Allergy, Severe, SWELLING, 07/23/17) sodium iodide (Unverified Allergy, Severe, SWELLING, 07/23/17) Assessment & Plan A/P After further discussion of TMA vs BKA, patient has decided he wants to proceed with Left BKA Consult placed to Dr Haque to discuss with patient. Nonweightbearing to left lower extremity and posterior splint Arabella Fuller DPM Aug 02, 2017 16:05
[2017-08-02 19:43] VITALS: BP 122/72; PULSE 85; RESP 19; TEMP 98.9; O2SAT 98
[2017-08-02 23:34] VITALS: BP 122/68; PULSE 96; RESP 18; TEMP 98.8; O2SAT 97
[2017-08-03] MEDS: HYDROmorphone HCL PF 0.5 MG/0.5 ML SYRINGE IV PRN ×7 (00:45→23:16)
[2017-08-03] MEDS: ALPRAZolam 0.5 MG TAB PO PRN ×2 (02:21→20:57)
[2017-08-03 04:28] VITALS: BP 120/62; PULSE 86; RESP 18; TEMP 98.1; O2SAT 98
[2017-08-03] MEDS: METHOCARBAMOL 500 MG TAB PO SCH ×3 (05:42→22:40)
[2017-08-03] MEDS: NITROGLYCERIN 2% OINT 1 GM PACKET TOPICAL SCH ×3 (05:42→22:40)
[2017-08-03] MEDS: GENTAMICIN INJ 80 MG in SODIUM CHLORIDE 0.9% INJ 100 ML IV SCH ×3 (05:42→22:39)
[2017-08-03] MEDS: PREGABALIN 100 MG CAP PO SCH ×3 (05:43→22:40)
[2017-08-03] MEDS: CLINDAMYCIN 600 MG/NS PREMIX 50 ML IV SCH ×3 (05:43→22:39)
[2017-08-03 08:00] VITALS: BP 127/70; PULSE 92; RESP 19; TEMP 97.8; O2SAT 99
[2017-08-03] MEDS: DOCUSATE SODIUM 50 MG/SENNA 8.6 MG TAB PO SCH ×2 (08:45→22:40)
[2017-08-03] MEDS: ENOXAPARIN SODIUM 30 MG/0.3 ML SYRINGE SQ SCH ×2 (08:46→22:39)
[2017-08-03] MEDS: FAMOTIDINE 20 MG TAB PO SCH ×2 (08:46→22:40)
[2017-08-03] MEDS: TAMSULOSIN HCL 0.4 MG CAP PO SCH (08:46)
[2017-08-03] MEDS: ceFAZolin 2 GM PREMIX 50 ML IV SCH ×2 (08:47→18:24)
[2017-08-03] MEDS: MAGNESIUM HYDROXIDE SUSP 30 ML CUP PO SCH ×2 (09:00→21:00)
[2017-08-03] MEDS: BACITRACIN/POLYMYXIN B 15 GM TUBE TOPICAL SCH (09:00)
[2017-08-03] MEDS: LACTULOSE SYRUP 20 GM/30 ML CUP PO SCH (09:00)
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
[2017-08-03 12:00] VITALS: BP 131/68; PULSE 94; RESP 18; TEMP 97.9; O2SAT 96
[2017-08-03 16:00] VITALS: BP 121/74; PULSE 89; RESP 18; TEMP 97.8; O2SAT 99
--- NOTE | 2017-08-03 16:03 | PD.CAR.PN ---
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 below-knee amputations and the functional results achieved with the same He also understands that with transmetatarsal amputation will retain the ankle but he believes that this will lead to jail disability, problems and issues I do agree with him that below-knee amputation is 1 surgery and is over with and then he can be fitted for a prosthesis to be able to run walk or swim or do other activities Therefore after long discussion patient has decided that he wants below-knee amputation but would like to wait another day or 2 until his family comes in We will go ahead with below-knee amputation whenever patient desires Objective: Vital Signs Date Time Temp Pulse Resp B/P (MAP) Pulse Ox O2 Delivery O2 Flow Rate FiO2 08/03/17 08:00 97.8 92 19 127/70 (89) 99 08/03/17 04:28 98.1 86 18 120/62 (81) 98 08/02/17 23:34 98.8 96 18 122/68 (86) 97 08/02/17 23:06 18 08/02/17 20:39 18 08/02/17 19:43 98.9 85 19 122/72 (89) 98 08/02/17 16:00 98.3 105 18 139/82 (101) 98 Result Diagram: 08/02/17 0411 08/02/17 0411 Adam Haque MD Aug 03, 2017 16:03
[2017-08-03 20:15] VITALS: BP 130/67; PULSE 102; RESP 19; TEMP 98; O2SAT 100
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
[2017-08-04] VITALS: BP 116/64; PULSE 95; RESP 16; TEMP 98.3; O2SAT 97
[2017-08-04] MEDS: HYDROmorphone HCL PF 0.5 MG/0.5 ML SYRINGE IV PRN ×5 (03:52→22:29)
[2017-08-04 04:00] VITALS: BP 118/72; PULSE 83; RESP 16; TEMP 98.3; O2SAT 97
[2017-08-04] MEDS: CLINDAMYCIN 600 MG/NS PREMIX 50 ML IV SCH ×3 (05:13→22:28)
[2017-08-04] MEDS: fentaNYL 75 MCG/HR PATCH T-DERMAL SCH (06:37)
[2017-08-04] MEDS: REMOVE OLD DURAGESIC (FENTANYL) PATCH T-DERMAL SCH (06:38)
[2017-08-04] MEDS: NITROGLYCERIN 2% OINT 1 GM PACKET TOPICAL SCH ×3 (06:38→22:30)
[2017-08-04] MEDS: GENTAMICIN INJ 80 MG in SODIUM CHLORIDE 0.9% INJ 100 ML IV SCH ×3 (06:38→22:35)
[2017-08-04] MEDS: METHOCARBAMOL 500 MG TAB PO SCH ×2 (06:38→14:44)
[2017-08-04] MEDS: PREGABALIN 100 MG CAP PO SCH ×3 (06:38→22:28)
[2017-08-04 08:00] VITALS: BP 113/58; PULSE 78; RESP 16; TEMP 98.2; O2SAT 96
[2017-08-04] MEDS: LACTULOSE SYRUP 20 GM/30 ML CUP PO SCH (09:00)
[2017-08-04] MEDS: MAGNESIUM HYDROXIDE SUSP 30 ML CUP PO SCH ×2 (09:00→21:00)
[2017-08-04] MEDS: DOCUSATE SODIUM 50 MG/SENNA 8.6 MG TAB PO SCH ×2 (09:12→20:24)
[2017-08-04] MEDS: ceFAZolin 2 GM PREMIX 50 ML IV SCH ×3 (09:12→16:36)
[2017-08-04] MEDS: ENOXAPARIN SODIUM 30 MG/0.3 ML SYRINGE SQ SCH ×2 (09:12→22:28)
[2017-08-04] MEDS: TAMSULOSIN HCL 0.4 MG CAP PO SCH (09:13)
[2017-08-04] MEDS: FAMOTIDINE 20 MG TAB PO SCH ×2 (09:13→20:24)
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
[2017-08-04 12:00] VITALS: BP 114/72; PULSE 83; RESP 16; TEMP 98.3; O2SAT 95
[2017-08-04] MEDS: BACITRACIN/POLYMYXIN B 15 GM TUBE TOPICAL SCH (14:40)
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
[2017-08-04 16:00] VITALS: BP 110/67; PULSE 105; RESP 16; TEMP 97.8; O2SAT 95
[2017-08-04 20:00] VITALS: BP 135/68; PULSE 98; RESP 18; TEMP 98.3; O2SAT 98
[2017-08-04] MEDS: ALPRAZolam 0.5 MG TAB PO PRN (20:21)
[2017-08-05 00:01] VITALS: BP 124/71; PULSE 83; RESP 17; TEMP 99.1; O2SAT 98
[2017-08-05] MEDS: ceFAZolin 2 GM PREMIX 50 ML IV SCH ×2 (00:36→07:57)
[2017-08-05] MEDS: METHOCARBAMOL 500 MG TAB PO SCH ×3 (00:36→14:26)
[2017-08-05] MEDS: HYDROmorphone HCL PF 0.5 MG/0.5 ML SYRINGE IV PRN (03:06)
[2017-08-05 04:00] VITALS: TEMP 98.4
[2017-08-05] MEDS: NITROGLYCERIN 2% OINT 1 GM PACKET TOPICAL SCH ×3 (04:47→21:37)
[2017-08-05] MEDS: CLINDAMYCIN 600 MG/NS PREMIX 50 ML IV SCH ×3 (04:47→21:37)
[2017-08-05] MEDS: GENTAMICIN INJ 80 MG in SODIUM CHLORIDE 0.9% INJ 100 ML IV SCH ×2 (04:47→14:26)
[2017-08-05] MEDS: PREGABALIN 100 MG CAP PO SCH ×2 (05:48→14:26)
[2017-08-05] MEDS: ALPRAZolam 0.5 MG TAB PO PRN ×3 (05:48→20:49)
[2017-08-05 06:51] LABS: AUTOMATED NEUTROPHIL # 6.7 TH/MM3 (1.8-7.7); BASOPHIL # 0.1 TH/MM3 (0-0.2); BASOPHIL % 0.6 % (0.0-2.0); EOSINOPHIL # 0.1 TH/MM3 (0-0.4); EOSINOPHIL % 1.4 % (0.0-4.0); HEMOGLOBIN 10.6 GM/DL (13.0-17.0); LYMPH % 18.1 % (9.0-44.0); LYMPHOCYTE # 1.7 TH/MM3 (1.0-4.8); MEAN CORPUSCULAR HEMOGLOBIN 28.5 PG (27.0-34.0); MEAN CORPUSCULAR HGB CONC 33.1 % (32.0-36.0); MEAN PLATELET VOLUME 7.9 FL (7.0-11.0); MONO % 10.9 % (0.0-8.0); MONOCYTE # 1.1 TH/MM3 (0-0.9); PLATELET COUNT 494 TH/MM3 (150-450); RED BLOOD COUNT 3.72 MIL/MM3 (4.50-5.90); RED CELL DISTRIBUTION WIDTH 12.9 % (11.6-17.2); WHITE BLOOD COUNT 9.7 TH/MM3 (4.0-11.0)
[2017-08-05 07:17] LABS: BICARBONATE 26.5 MEQ/L (21.0-32.0); CALCIUM 9.3 MG/DL (8.5-10.1); CREATININE 1.17 MG/DL (0.60-1.30)
[2017-08-05] MEDS: TAMSULOSIN HCL 0.4 MG CAP PO SCH (07:56)
[2017-08-05] MEDS: FAMOTIDINE 20 MG TAB PO SCH ×2 (07:56→20:49)
[2017-08-05] MEDS: HYDROmorphone HCL PF 2 MG/ML VIAL IV PRN ×6 (07:56→21:37)
[2017-08-05] MEDS: DOCUSATE SODIUM 50 MG/SENNA 8.6 MG TAB PO SCH ×2 (07:56→20:49)
[2017-08-05] MEDS: ENOXAPARIN SODIUM 30 MG/0.3 ML SYRINGE SQ SCH ×2 (07:57→20:49)
[2017-08-05 08:00] VITALS: BP 110/69; PULSE 82; RESP 16; TEMP 97.7; O2SAT 96
[2017-08-05] MEDS ORDERED: BISACODYL EC 5 MG TABEC PO ONE (08:00)
[2017-08-05] MEDS ORDERED: BISACODYL 10 MG SUPP RECTAL ONE (08:00)
[2017-08-05] MEDS: BACITRACIN/POLYMYXIN B 15 GM TUBE TOPICAL SCH (08:40)
[2017-08-05] MEDS: LACTULOSE SYRUP 20 GM/30 ML CUP PO SCH (08:40)
[2017-08-05] MEDS: MAGNESIUM HYDROXIDE SUSP 30 ML CUP PO SCH ×2 (09:00→21:00)
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
[2017-08-05 12:00] VITALS: BP 121/65; PULSE 99; RESP 18; TEMP 97.7; O2SAT 95
[2017-08-05 16:00] VITALS: BP 106/61; PULSE 95; RESP 18; TEMP 97.9; O2SAT 99
[2017-08-05] MEDS ORDERED: BUPIVACAINE HCL PF 0.5% 30 ML VIAL NERV BLOCK ONE (17:00)
[2017-08-05] MEDS ORDERED: BUPIVACAINE HCL PF 0.25% 10 ML VIAL NERV BLOCK ONE (17:00)
[2017-08-05 20:00] VITALS: BP 119/75; PULSE 99; RESP 18; TEMP 98.3; O2SAT 97
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
[2017-08-06 00:01] VITALS: BP 127/77; PULSE 97; RESP 18; TEMP 97.5; O2SAT 99
[2017-08-06] MEDS: PREGABALIN 100 MG CAP PO SCH ×3 (00:18→20:39)
[2017-08-06] MEDS: METHOCARBAMOL 500 MG TAB PO SCH ×3 (00:18→20:36)
[2017-08-06] MEDS: HYDROmorphone HCL PF 2 MG/ML VIAL IV PRN ×6 (00:56→23:20)
[2017-08-06] MEDS: CLINDAMYCIN 600 MG/NS PREMIX 50 ML IV SCH ×3 (05:43→20:36)
[2017-08-06 07:50] VITALS: BP 142/69; PULSE 86; RESP 20; TEMP 98.1; O2SAT 95
[2017-08-06] MEDS: FAMOTIDINE 20 MG TAB PO SCH ×2 (08:26→20:36)
[2017-08-06] MEDS: DOCUSATE SODIUM 50 MG/SENNA 8.6 MG TAB PO SCH ×2 (08:26→20:36)
[2017-08-06] MEDS: TAMSULOSIN HCL 0.4 MG CAP PO SCH (08:26)
[2017-08-06] MEDS: ENOXAPARIN SODIUM 30 MG/0.3 ML SYRINGE SQ SCH ×2 (08:27→20:36)
[2017-08-06] MEDS: MAGNESIUM HYDROXIDE SUSP 30 ML CUP PO SCH ×2 (08:31→20:40)
[2017-08-06] MEDS: BACITRACIN/POLYMYXIN B 15 GM TUBE TOPICAL SCH (08:31)
[2017-08-06] MEDS: LACTULOSE SYRUP 20 GM/30 ML CUP PO SCH (08:31)
[2017-08-06 11:50] VITALS: BP 122/68; PULSE 91; RESP 20; TEMP 98; O2SAT 96
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
[2017-08-06] MEDS: NITROGLYCERIN 2% OINT 1 GM PACKET TOPICAL SCH ×2 (13:27→20:36)
[2017-08-06] MEDS: ALPRAZolam 0.5 MG TAB PO PRN ×2 (13:42→20:42)
[2017-08-06 15:39] VITALS: BP 141/81; PULSE 103; RESP 20; TEMP 98.3; O2SAT 100
[2017-08-06 19:30] VITALS: BP 139/74; PULSE 94; RESP 18; TEMP 97.8; O2SAT 97
[2017-08-07] VITALS: BP 132/71; PULSE 83; RESP 18; TEMP 97.8; O2SAT 100
[2017-08-07] MEDS: HYDROmorphone HCL PF 2 MG/ML VIAL IV PRN ×5 (02:54→22:47)
[2017-08-07] MEDS: SODIUM CHLORIDE 0.9% FLUSH 10 ML FLUSH IVF PRN (02:54)
[2017-08-07 04:00] VITALS: BP 140/81; PULSE 76; RESP 18; TEMP 98.2; O2SAT 99
[2017-08-07] MEDS: CLINDAMYCIN 600 MG/NS PREMIX 50 ML IV SCH ×3 (05:32→22:38)
[2017-08-07] MEDS: PREGABALIN 100 MG CAP PO SCH ×3 (05:33→22:37)
[2017-08-07] MEDS: NITROGLYCERIN 2% OINT 1 GM PACKET TOPICAL SCH ×3 (05:34→22:37)
[2017-08-07] MEDS: METHOCARBAMOL 500 MG TAB PO SCH ×3 (05:34→22:37)
[2017-08-07] MEDS: fentaNYL 75 MCG/HR PATCH T-DERMAL SCH (05:38)
[2017-08-07] MEDS: REMOVE OLD DURAGESIC (FENTANYL) PATCH T-DERMAL SCH (05:38)
[2017-08-07 08:00] VITALS: BP 131/77; PULSE 81; RESP 16; TEMP 97.5; O2SAT 98
[2017-08-07] MEDS: DOCUSATE SODIUM 50 MG/SENNA 8.6 MG TAB PO SCH ×2 (08:24→20:39)
[2017-08-07] MEDS: ENOXAPARIN SODIUM 30 MG/0.3 ML SYRINGE SQ SCH ×2 (08:24→20:40)
[2017-08-07] MEDS: FAMOTIDINE 20 MG TAB PO SCH ×2 (08:24→20:39)
[2017-08-07] MEDS: BACITRACIN/POLYMYXIN B 15 GM TUBE TOPICAL SCH (08:25)
[2017-08-07] MEDS: TAMSULOSIN HCL 0.4 MG CAP PO SCH (08:25)
[2017-08-07] MEDS: ALPRAZolam 0.5 MG TAB PO PRN ×2 (08:32→17:05)
[2017-08-07] MEDS: MAGNESIUM HYDROXIDE SUSP 30 ML CUP PO SCH ×2 (09:00→20:40)
[2017-08-07] MEDS: LACTULOSE SYRUP 20 GM/30 ML CUP PO SCH (09:00)
[2017-08-07 12:00] VITALS: BP 163/63; PULSE 81; RESP 16; TEMP 97.5; O2SAT 96
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
[2017-08-07 16:00] VITALS: BP 135/66; PULSE 89; RESP 17; TEMP 98.2; O2SAT 96
[2017-08-07 19:45] VITALS: BP 136/71; PULSE 87; RESP 18; TEMP 97.3; O2SAT 100
[2017-08-07] MEDS ORDERED: ceFAZolin 2 GM PREMIX 50 ML IV SCH (20:00)
[2017-08-08] VITALS: BP 127/75; PULSE 86; RESP 18; TEMP 97.8; O2SAT 98
[2017-08-08] MEDS: HYDROmorphone HCL PF 2 MG/ML VIAL IV PRN ×3 (02:17→16:02)
[2017-08-08] MEDS: ALPRAZolam 0.5 MG TAB PO PRN ×2 (02:22→19:56)
[2017-08-08] MEDS ORDERED: LACTATED RINGER'S 1000 ML IV PRN (03:00)
[2017-08-08] MEDS ORDERED: SODIUM CHLORID 0.9% 500 ML IV PRN (03:00)
[2017-08-08 04:00] VITALS: BP 124/79; PULSE 72; RESP 18; TEMP 97.5; O2SAT 99
[2017-08-08] MEDS: PREGABALIN 100 MG CAP PO SCH ×3 (06:46→22:02)
[2017-08-08] MEDS: METHOCARBAMOL 500 MG TAB PO SCH ×3 (06:46→22:02)
[2017-08-08] MEDS: NITROGLYCERIN 2% OINT 1 GM PACKET TOPICAL SCH ×3 (06:46→22:00)
[2017-08-08] MEDS: SODIUM CHLORIDE 0.9% FLUSH 10 ML FLUSH IVF PRN (06:47)
[2017-08-08] MEDS: CLINDAMYCIN 600 MG/NS PREMIX 50 ML IV SCH ×3 (06:47→22:02)
[2017-08-08] MEDS: MAGNESIUM HYDROXIDE SUSP 30 ML CUP PO SCH ×2 (09:00→21:00)
[2017-08-08] MEDS: BACITRACIN/POLYMYXIN B 15 GM TUBE TOPICAL SCH (09:00)
[2017-08-08] MEDS: ENOXAPARIN SODIUM 30 MG/0.3 ML SYRINGE SQ SCH ×2 (09:00→21:06)
[2017-08-08] MEDS: FAMOTIDINE 20 MG TAB PO SCH ×2 (09:00→21:04)
[2017-08-08] MEDS: LACTULOSE SYRUP 20 GM/30 ML CUP PO SCH (09:00)
[2017-08-08] MEDS: TAMSULOSIN HCL 0.4 MG CAP PO SCH (09:00)
[2017-08-08] MEDS: DOCUSATE SODIUM 50 MG/SENNA 8.6 MG TAB PO SCH ×2 (09:00→21:04)
[2017-08-08] MEDS ORDERED: ACETAMINOPHEN 1000 MG/100 ML 0 ML IV ONE (09:08)
[2017-08-08] MEDS ORDERED: BUPIVACAINE LIPOSOME PF 1.3% 20 ML VIAL ONE (09:15)
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
[2017-08-08] MEDS ORDERED: DO NOT ADM ANY ANTICOAGULANT DRUGS PRN (11:50)
[2017-08-08] MEDS ORDERED: MIDAZOLAM HCL 2 MG/2 ML VIAL ONE (11:58)
[2017-08-08] MEDS ORDERED: SUCCINYLCHOLINE CHLORIDE 100 MG/5 ML SYRINGE IV PUSH ONE (12:00)
[2017-08-08] MEDS ORDERED: PROPOFOL 200 MG/20 ML AMP IV ONE (12:00)
[2017-08-08] MEDS ORDERED: ONDANSETRON HCL 4 MG/2 ML VIAL IV PUSH ONE (12:00)
[2017-08-08] MEDS ORDERED: LACTATED RINGER'S 1000 ML INJ 1,000 ML IV ONE (12:00)
[2017-08-08] MEDS ORDERED: DEXAMETHASONE SOD PHOS 4 MG/ML VIAL IV ONE (12:00)
[2017-08-08] MEDS ORDERED: LIDOCAINE HCL 1% PF 5 ML SYRINGE OTHER ONE (12:00)
[2017-08-08] MEDS ORDERED: ROCURONIUM INJ 50 MG/5 ML SYRINGE IV PUSH ONE (12:00)
[2017-08-08 16:00] VITALS: BP 135/69; PULSE 106; RESP 20; TEMP 98.2; O2SAT 98
[2017-08-08] MEDS ORDERED: fentaNYL 75 MCG/HR PATCH T-DERMAL SCH ×2 (17:00→18:45)
[2017-08-08] MEDS ORDERED: HYDROmorphone HCL PF 1 MG/ML VIAL IV PUSH PRN (18:15)
[2017-08-08 18:19] VITALS: O2SAT 100
[2017-08-08] MEDS: REMOVE OLD DURAGESIC (FENTANYL) PATCH T-DERMAL SCH (18:39)
[2017-08-08] MEDS: fentaNYL 75 MCG/HR PATCH T-DERMAL SCH (18:39)
[2017-08-08] MEDS: HYDROmorphone HCL PF 2 MG/ML VIAL IV PUSH PRN ×3 (19:02→23:08)
[2017-08-08 19:45] VITALS: BP 137/78; PULSE 104; RESP 18; TEMP 98.2; O2SAT 98
[2017-08-09] VITALS (8 sets, daily range): BP systolic 122–147; BP diastolic 68–83; PULSE 82–100; RESP 16–18; TEMP 97.3–98; O2SAT 95–100
[2017-08-09] MEDS: HYDROmorphone HCL PF 2 MG/ML VIAL IV PUSH PRN ×7 (01:04→21:08)
[2017-08-09] MEDS: ALPRAZolam 0.5 MG TAB PO PRN ×2 (01:08→05:31)
[2017-08-09 04:43] LABS: AUTOMATED NEUTROPHIL # 6.4 TH/MM3 (1.8-7.7); BASOPHIL % 0.4 % (0.0-2.0); EOSINOPHIL % 0.4 % (0.0-4.0); HEMATOCRIT 31.4 % (39.0-51.0); HEMOGLOBIN 10.3 GM/DL (13.0-17.0); LYMPH % 19.8 % (9.0-44.0); LYMPHOCYTE # 1.9 TH/MM3 (1.0-4.8); MEAN CELL VOLUME 87.2 FL (80.0-100.0); MEAN CORPUSCULAR HEMOGLOBIN 28.5 PG (27.0-34.0); MEAN CORPUSCULAR HGB CONC 32.8 % (32.0-36.0); MEAN PLATELET VOLUME 8.2 FL (7.0-11.0); MONOCYTE # 1.1 TH/MM3 (0-0.9); NEUT % 67.4 % (16.0-70.0); PLATELET COUNT 561 TH/MM3 (150-450); RED BLOOD COUNT 3.61 MIL/MM3 (4.50-5.90); RED CELL DISTRIBUTION WIDTH 12.9 % (11.6-17.2); WHITE BLOOD COUNT 9.5 TH/MM3 (4.0-11.0)
[2017-08-09 05:06] LABS: CALCIUM 8.8 MG/DL (8.5-10.1); CREATININE 1.06 MG/DL (0.60-1.30)
[2017-08-09] MEDS: PREGABALIN 100 MG CAP PO SCH ×3 (05:31→22:10)
[2017-08-09] MEDS: CLINDAMYCIN 600 MG/NS PREMIX 50 ML IV SCH ×3 (05:31→21:08)
[2017-08-09] MEDS: METHOCARBAMOL 500 MG TAB PO SCH ×3 (05:31→22:10)
[2017-08-09] MEDS: NITROGLYCERIN 2% OINT 1 GM PACKET TOPICAL SCH ×3 (05:33→22:00)
[2017-08-09] MEDS: TAMSULOSIN HCL 0.4 MG CAP PO SCH (08:14)
[2017-08-09] MEDS: DOCUSATE SODIUM 50 MG/SENNA 8.6 MG TAB PO SCH ×2 (08:14→19:51)
[2017-08-09] MEDS: FAMOTIDINE 20 MG TAB PO SCH ×2 (08:14→19:51)
[2017-08-09] MEDS: ENOXAPARIN SODIUM 30 MG/0.3 ML SYRINGE SQ SCH ×2 (08:15→21:08)
[2017-08-09] MEDS: BACITRACIN/POLYMYXIN B 15 GM TUBE TOPICAL SCH (08:15)
[2017-08-09] MEDS: LACTULOSE SYRUP 20 GM/30 ML CUP PO SCH (09:00)
[2017-08-09] MEDS: MAGNESIUM HYDROXIDE SUSP 30 ML CUP PO SCH ×2 (09:00→19:50)
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
[2017-08-09] MEDS: SODIUM CHLORIDE 0.9% FLUSH 10 ML FLUSH IVF PRN (11:40)
[2017-08-10] MEDS: HYDROmorphone HCL PF 2 MG/ML VIAL IV PUSH PRN ×5 (00:22→13:07)
[2017-08-10 00:30] VITALS: BP 124/68; PULSE 86; RESP 18; TEMP 98.1; O2SAT 98
[2017-08-10] MEDS: ALPRAZolam 0.5 MG TAB PO PRN (04:11)
[2017-08-10] MEDS: NITROGLYCERIN 2% OINT 1 GM PACKET TOPICAL SCH ×3 (06:00→21:34)
[2017-08-10] MEDS: METHOCARBAMOL 500 MG TAB PO SCH ×3 (06:42→21:35)
[2017-08-10] MEDS: PREGABALIN 100 MG CAP PO SCH ×3 (06:42→21:34)
[2017-08-10] MEDS: CLINDAMYCIN 600 MG/NS PREMIX 50 ML IV SCH ×3 (06:42→21:36)
[2017-08-10 08:00] VITALS: BP 119/71; PULSE 106; RESP 18; TEMP 99; O2SAT 95
[2017-08-10] MEDS: DOCUSATE SODIUM 50 MG/SENNA 8.6 MG TAB PO SCH ×2 (08:01→21:35)
[2017-08-10] MEDS: FAMOTIDINE 20 MG TAB PO SCH ×2 (08:01→21:35)
[2017-08-10] MEDS: TAMSULOSIN HCL 0.4 MG CAP PO SCH (08:01)
[2017-08-10] MEDS: ENOXAPARIN SODIUM 30 MG/0.3 ML SYRINGE SQ SCH ×2 (08:02→21:34)
[2017-08-10] MEDS: MAGNESIUM HYDROXIDE SUSP 30 ML CUP PO SCH ×2 (08:09→21:00)
[2017-08-10] MEDS: LACTULOSE SYRUP 20 GM/30 ML CUP PO SCH (08:09)
[2017-08-10] MEDS: BACITRACIN/POLYMYXIN B 15 GM TUBE TOPICAL SCH (08:10)
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
[2017-08-10 12:00] VITALS: BP 113/65; PULSE 100; RESP 18; TEMP 98.3; O2SAT 94
[2017-08-10 14:19] VITALS: O2SAT 95
[2017-08-10 20:00] VITALS: BP 119/62; PULSE 99; RESP 18; TEMP 98.4; O2SAT 99
[2017-08-11] VITALS: BP 123/61; PULSE 91; RESP 18; TEMP 99.3; O2SAT 97
[2017-08-11] MEDS: ALPRAZolam 0.5 MG TAB PO PRN ×4 (00:09→18:24)
[2017-08-11] MEDS: CLINDAMYCIN 600 MG/NS PREMIX 50 ML IV SCH ×3 (06:00→22:30)
[2017-08-11] MEDS: NITROGLYCERIN 2% OINT 1 GM PACKET TOPICAL SCH ×3 (06:00→22:00)
[2017-08-11] MEDS: METHOCARBAMOL 500 MG TAB PO SCH ×3 (06:17→22:30)
[2017-08-11] MEDS: PREGABALIN 100 MG CAP PO SCH ×3 (06:17→22:30)
[2017-08-11 08:09] VITALS: BP 103/56; PULSE 90; RESP 18; TEMP 99.7; O2SAT 96
[2017-08-11] MEDS ORDERED: BISACODYL 10 MG SUPP RECTAL ONE (08:30)
[2017-08-11] MEDS ORDERED: BISACODYL EC 5 MG TABEC PO ONE (08:30)
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
[2017-08-11] MEDS: TAMSULOSIN HCL 0.4 MG CAP PO SCH (08:56)
[2017-08-11] MEDS: DOCUSATE SODIUM 50 MG/SENNA 8.6 MG TAB PO SCH ×2 (08:56→22:31)
[2017-08-11] MEDS: FAMOTIDINE 20 MG TAB PO SCH ×2 (08:56→22:30)
[2017-08-11] MEDS: ENOXAPARIN SODIUM 30 MG/0.3 ML SYRINGE SQ SCH ×2 (08:58→22:31)
[2017-08-11] MEDS: MAGNESIUM HYDROXIDE SUSP 30 ML CUP PO SCH ×3 (08:58→22:31)
[2017-08-11] MEDS: LACTULOSE SYRUP 20 GM/30 ML CUP PO SCH (08:58)
[2017-08-11] MEDS: BACITRACIN/POLYMYXIN B 15 GM TUBE TOPICAL SCH (09:00)
[2017-08-11 10:30] VITALS: O2SAT 97
[2017-08-11 12:06] VITALS: BP 116/58; PULSE 93; RESP 18; TEMP 98.8; O2SAT 95
[2017-08-11] MEDS ORDERED: METH500T3 PO (12:24)
[2017-08-11] MEDS ORDERED: LYRI100C PO (12:24)
[2017-08-11] MEDS ORDERED: PERC10TA27 PO (12:24)
[2017-08-11 16:36] VITALS: BP 123/58; PULSE 99; RESP 17; TEMP 98.5; O2SAT 93
[2017-08-11] MEDS: fentaNYL 75 MCG/HR PATCH T-DERMAL SCH (18:24)
[2017-08-11] MEDS: REMOVE OLD DURAGESIC (FENTANYL) PATCH T-DERMAL SCH (18:24)
[2017-08-11 20:00] VITALS: BP 116/60; PULSE 100; RESP 18; TEMP 98.3; O2SAT 95
[2017-08-12] VITALS (7 sets, daily range): BP systolic 106–122; BP diastolic 55–78; PULSE 83–103; RESP 16–18; TEMP 98–99.1; O2SAT 95–99
[2017-08-12] MEDS: METHOCARBAMOL 500 MG TAB PO SCH ×3 (05:21→22:18)
[2017-08-12] MEDS: NITROGLYCERIN 2% OINT 1 GM PACKET TOPICAL SCH ×3 (05:22→22:00)
[2017-08-12] MEDS: CLINDAMYCIN 600 MG/NS PREMIX 50 ML IV SCH ×3 (05:22→21:33)
[2017-08-12] MEDS: PREGABALIN 100 MG CAP PO SCH ×3 (05:22→22:18)
[2017-08-12] MEDS: ALPRAZolam 0.5 MG TAB PO PRN ×3 (05:56→21:36)
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
[2017-08-12] MEDS: LACTULOSE SYRUP 20 GM/30 ML CUP PO SCH (09:00)
[2017-08-12] MEDS: MAGNESIUM HYDROXIDE SUSP 30 ML CUP PO SCH ×2 (09:00→21:00)
[2017-08-12] MEDS: BACITRACIN/POLYMYXIN B 15 GM TUBE TOPICAL SCH (09:00)
[2017-08-12] MEDS: FAMOTIDINE 20 MG TAB PO SCH ×2 (09:37→21:35)
[2017-08-12] MEDS: DOCUSATE SODIUM 50 MG/SENNA 8.6 MG TAB PO SCH ×2 (09:37→21:35)
[2017-08-12] MEDS: TAMSULOSIN HCL 0.4 MG CAP PO SCH (09:37)
[2017-08-12] MEDS: ENOXAPARIN SODIUM 30 MG/0.3 ML SYRINGE SQ SCH ×2 (09:43→21:34)
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
[2017-08-12] MEDS ORDERED: TRANSFER BENCH1 MIS (13:20)
[2017-08-13 00:50] VITALS: BP 106/55; PULSE 85; RESP 16; TEMP 98.4; O2SAT 96
[2017-08-13] MEDS: ALPRAZolam 0.5 MG TAB PO PRN ×4 (00:50→22:17)
[2017-08-13] MEDS: METHOCARBAMOL 500 MG TAB PO SCH ×3 (05:20→21:28)
[2017-08-13] MEDS: PREGABALIN 100 MG CAP PO SCH ×3 (05:20→21:28)
[2017-08-13] MEDS: CLINDAMYCIN 600 MG/NS PREMIX 50 ML IV SCH ×3 (05:20→21:28)
[2017-08-13] MEDS: NITROGLYCERIN 2% OINT 1 GM PACKET TOPICAL SCH ×3 (05:25→22:00)
[2017-08-13 08:00] VITALS: BP 109/64; PULSE 83; RESP 16; TEMP 97.9; O2SAT 95
[2017-08-13] MEDS: BACITRACIN/POLYMYXIN B 15 GM TUBE TOPICAL SCH (09:00)
[2017-08-13] MEDS: LACTULOSE SYRUP 20 GM/30 ML CUP PO SCH (09:00)
[2017-08-13] MEDS: MAGNESIUM HYDROXIDE SUSP 30 ML CUP PO SCH ×2 (09:00→21:00)
[2017-08-13] MEDS: ENOXAPARIN SODIUM 30 MG/0.3 ML SYRINGE SQ SCH ×2 (09:08→21:27)
[2017-08-13] MEDS: FAMOTIDINE 20 MG TAB PO SCH ×2 (09:08→21:27)
[2017-08-13] MEDS: TAMSULOSIN HCL 0.4 MG CAP PO SCH (09:08)
[2017-08-13] MEDS: DOCUSATE SODIUM 50 MG/SENNA 8.6 MG TAB PO SCH ×2 (09:08→21:27)
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
[2017-08-13 12:00] VITALS: BP 121/70; PULSE 90; RESP 16; TEMP 97.8; O2SAT 95
[2017-08-13 16:00] VITALS: BP 108/65; PULSE 96; RESP 16; TEMP 97.9; O2SAT 95
[2017-08-13 19:25] VITALS: BP 114/56; PULSE 81; RESP 20; TEMP 98.4; O2SAT 95
[2017-08-13 23:50] VITALS: BP 123/59; PULSE 80; RESP 20; TEMP 98.4; O2SAT 97
[2017-08-14] MEDS: ALPRAZolam 0.5 MG TAB PO PRN ×2 (02:46→09:40)
[2017-08-14 03:35] VITALS: BP 118/60; PULSE 88; RESP 20; TEMP 98.2; O2SAT 98
[2017-08-14] MEDS: NITROGLYCERIN 2% OINT 1 GM PACKET TOPICAL SCH ×2 (05:49→13:57)
[2017-08-14] MEDS: PREGABALIN 100 MG CAP PO SCH ×2 (05:49→13:56)
[2017-08-14] MEDS: METHOCARBAMOL 500 MG TAB PO SCH ×2 (05:49→13:57)
[2017-08-14] MEDS: CLINDAMYCIN 600 MG/NS PREMIX 50 ML IV SCH ×2 (05:49→14:00)
[2017-08-14 08:00] VITALS: BP 99/59; PULSE 65; RESP 16; TEMP 98.4; O2SAT 96
[2017-08-14] MEDS: BACITRACIN/POLYMYXIN B 15 GM TUBE TOPICAL SCH (09:00)
[2017-08-14] MEDS: LACTULOSE SYRUP 20 GM/30 ML CUP PO SCH (09:00)
[2017-08-14] MEDS: MAGNESIUM HYDROXIDE SUSP 30 ML CUP PO SCH (09:00)
[2017-08-14] MEDS: FAMOTIDINE 20 MG TAB PO SCH (09:40)
[2017-08-14] MEDS: DOCUSATE SODIUM 50 MG/SENNA 8.6 MG TAB PO SCH (09:40)
[2017-08-14] MEDS: ENOXAPARIN SODIUM 30 MG/0.3 ML SYRINGE SQ SCH (09:40)
[2017-08-14] MEDS: TAMSULOSIN HCL 0.4 MG CAP PO SCH (09:40)
[2017-08-14 12:00] VITALS: BP 100/57; PULSE 75; RESP 17; TEMP 98.2; O2SAT 95
[2017-08-14 15:15] VITALS: RESP 16
[2017-08-14] MEDS: REMOVE OLD DURAGESIC (FENTANYL) PATCH T-DERMAL SCH (15:34)
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
--- NOTE | 2017-08-21 16:12 | MP ---
cc: Adam Haque MD DATE OF OPERATION: 08/08/2017 DATE OF SURGERY: 08/08/2017. PREOPERATIVE DIAGNOSIS: Multiple foot fractures, osteomyelitis of the entire forefoot and gangrene of the forefoot. POSTOPERATIVE DIAGNOSIS: Multiple foot fractures, osteomyelitis of the entire forefoot and gangrene of the forefoot. OPERATIVE PROCEDURE: Left below-knee amputation. SURGEON: MD Garland ANESTHESIA: General. ESTIMATED BLOOD LOSS: 150 mL DESCRIPTION OF PROCEDURE: The patient is prepped and draped in the usual fashion, the area marked with indentations with silk and then incision made anteriorly with a 10 blade, carried laterally and then inferiorly, posteriorly through the skin. With cautery the incision is deepened down to the tibia and fibula. Anterior tibial artery and veins are clamped, divided, and ligated with 0 Vicryl. The periosteum is now elevated from the tibia and fibula up to about 2 inches above the original level of incision, then the bones are transected oscillating saw. The tibia is then angled under an oblique angle and rasped down and the fibula is also smoothened down. The posterior flap is now created with amputation knife and specimen removed. Meticulous hemostasis obtained with 0 Vicryl stick ties to the trifurcation vessels, small bleeders cauterized. The posterior flap is now tailored and then flipped forward, irrigated with copious amounts of saline, then incision closed with 0 Vicryl in layers; deep fascia to deep fascia, superficial to superficial and skin is closed with 2-0 Prolene interrupted stitches. Dressings applied. The patient tolerates the procedure well. MD SUZANNE Manzo/TAMMI , 03:42 PM , 04:11 PM
== END 2017-08-14 15:54 | disposition home health service (06) | DRG 475 ==
LOC: NEPE 04:36 → NEDA 05:58 → N06A 14:26
PROVIDERS: ADMIT Surgery Trauma Surgery; ATTEND Surgery Trauma Surgery
PROC: 0QSR04Z Reposition Left Toe Phalanx with Internal Fixation Device, Open Approach (ICD-10-PCS; 2017-07-23)
PROC: 0QSP04Z Reposition Left Metatarsal with Internal Fixation Device, Open Approach (ICD-10-PCS; 2017-07-23)
PROC: 0SSN04Z Reposition Left Metatarsal-Phalangeal Joint with Internal Fixation Device, Open Approach (ICD-10-PCS; 2017-07-23)
PROC: 0HQNXZZ Repair Left Foot Skin, External Approach (ICD-10-PCS; 2017-07-23)
PROC: 0QSP04Z Reposition Left Metatarsal with Internal Fixation Device, Open Approach (ICD-10-PCS; 2017-07-25)
PROC: 0QBM0ZZ Excision of Left Tarsal, Open Approach (ICD-10-PCS; 2017-07-25)
PROC: 0Y6U0Z0 Detachment at Left 3rd Toe, Complete, Open Approach (ICD-10-PCS; 2017-07-30)
PROC: 3E0T3BZ Introduction of Anesthetic Agent into Peripheral Nerves and Plexi, Percutaneous Approach (ICD-10-PCS; 2017-07-31)
PROC: 3E0T3BZ Introduction of Anesthetic Agent into Peripheral Nerves and Plexi, Percutaneous Approach (ICD-10-PCS; 2017-08-05)
PROC: 0Y6J0Z3 Detachment at Left Lower Leg, Low, Open Approach (ICD-10-PCS; principal; 2017-08-08 09:56)
DX: S92.312B Displaced fracture of first metatarsal bone, left foot, initial encounter for open fracture (principal); I96 Gangrene, not elsewhere classified; M86.9 Osteomyelitis, unspecified; G54.6 Phantom limb syndrome with pain; S91.022A Laceration with foreign body, left ankle, initial encounter; S92.512B Displaced fracture of proximal phalanx of left lesser toe(s), initial encounter for open fracture; S93.125A Dislocation of metatarsophalangeal joint of left lesser toe(s), initial encounter; S92.352B Displaced fracture of fifth metatarsal bone, left foot, initial encounter for open fracture; S93.115A Dislocation of interphalangeal joint of left lesser toe(s), initial encounter; S51.812A Laceration without foreign body of left forearm, initial encounter; F43.12 Post-traumatic stress disorder, chronic; R33.9 Retention of urine, unspecified; V86.56XA Driver of dirt bike or motor/cross bike injured in nontraffic accident, initial encounter
CPT/HCPCS: 70450; 70486; 71045; 71250; 72125; 72170; 73060; 73090; 73552; 73560; 73590; 73610; 73620; 73630; 74176; 76000; 80048; 85025; 85610; 85730; 86850; 86900; 86901; 86920; 87015; 87070; 87077; 87102; 87116; 87186; 87205; 87206; 88305; 88307; 88311; 90471; 90714; 94150; 96365; 96375; 99211; C1713; C9290; G0463; J0131; J0171; J0330; J0690; J0696; J1100; J1170; J1580; J1650; J2175; J2250; J2270; J2370; J2405; J2710; J3010; J7030; J7120

== ENCOUNTER 2017-08-23 16:35 | Emergency (ER) | payer OTHER ==
[~2017-08-23] VITALS: Ht 185.4 cm; Wt 105.0 kg
[~2017-08-23 16:35] MED LIST changes: -IBUP800T23 PO; -LORTA5 PO; +LYRI100C PO; +MAGN30S PO; +METH500T3 PO; +PERC10TA27 PO; +PERI PO; +TRANSFER BENCH1 MIS; -ULTR50TA PO; +WALKER WHEELS/F1 MIS; +WHEEMIS3
[2017-08-23 16:54] VITALS: BP 136/65; PULSE 102; RESP 18; TEMP 98.4; O2SAT 99
[2017-08-23] MEDS ORDERED: TRAM50 PO (18:37)
[2017-08-23] MEDS ORDERED: MOBI15TA PO (18:37)
--- NOTE | 2017-08-23 18:37 | PD ---
HPI Chief Complaint: Pain: Acute or Chronic Time Seen by Provider: 18:27 Travel History International Travel<30 days: No Contact w/Intl Traveler<30days: No Traveled to known affect area: No History of Present Illness HPI 32-year-old male complains of left leg pain. Patient status post left BKA 2 weeks ago. Patient states that he has persistent severe pain burning pain sharp pain localized to left leg stump. Patient denies any pain radiation. Patient states that he has constant movement of the right leg secondary to pain. Patient denies fever chills. Patient denies any coughing congestion. On a scale of 1-10 the pain is a 10. PFSH Past Medical History Diminished Hearing: No Past Surgical History Other Surgery: Yes (PYLORIC STENOSIS) Social History Alcohol Use: No Tobacco Use: No Substance Use: No Allergies-Medications (Allergen,Severity, Reaction): Coded Allergies: iodine (Unverified Allergy, Severe, SWELLING, 08/23/17) potassium iodide (Unverified Allergy, Severe, SWELLING, 08/23/17) povidone-iodine (Unverified Allergy, Severe, SWELLING, 08/23/17) sodium iodide (Unverified Allergy, Severe, SWELLING, 08/23/17) sodium iodide (Unverified Allergy, Severe, SWELLING, 08/23/17) Reported Meds & Prescriptions Reported Meds & Active Scripts Active Transfer Bench (Device) 1 Best Five Reviewed Ea .XX DIRECTED shower bench Percocet (Oxycodone-Acetaminophen) 10-325 mg Tab 1 Tab PO Q4H PRN Lyrica (Pregabalin) 100 Mg Cap 100 Mg PO Q8HR Methocarbamol 500 Mg Tab 500 Mg PO Q8HR Wheelchair Elevated Leg (Device) 1 Best Five Reviewed Ea .XX DIRECTED Qc Milk of Magnesia (Magnesium Hydroxide) 400 Mg/5 Ml Lala 30 Ml PO BID 5 Days Gnp Senna Plus 8.6-50 mg (Sennosides-Docusate Sodium) 8.6 Mg-50 Mg Tab 1 Tab PO BID Walker with Front Wheels (Device) 1 Best Five Reviewed Ea .XX DIRECTED Review of Systems General / Constitutional: No: Fever Eyes: No: Visual changes HENT: No: Headaches Cardiovascular: No: Chest Pain or Discomfort Respiratory: No: Shortness of Breath Gastrointestinal: No: Abdominal Pain Genitourinary: No: Dysuria Musculoskeletal: Positive: Pain Skin: No Rash Neurologic: No: Weakness Psychiatric: No: Depression Endocrine: No: Polydipsia Hematologic/Lymphatic: No: Easy Bruising Physical Exam Narrative GENERAL: Well-nourished, well-developed patient. SKIN: Focused skin assessment warm/dry. HEAD: Normocephalic. EYES: No scleral icterus. No injection or drainage. NECK: Supple, trachea midline. No JVD or lymphadenopathy. CARDIOVASCULAR: Regular rate and rhythm without murmurs, gallops, or rubs. RESPIRATORY: Breath sounds equal bilaterally. No accessory muscle use. GASTROINTESTINAL: Abdomen soft, non-tender, nondistended. MUSCULOSKELETAL: No cyanosis, or edema. BACK: Nontender without obvious deformity. No CVA tenderness. Examination of left leg stump shows well healing wound status post left BKA. Sutures in place. No redness no discharge noted. Data Data Last Documented VS Vital Signs Date Time Temp Pulse Resp B/P (MAP) Pulse Ox O2 Delivery O2 Flow Rate FiO2 08/23/17 16:54 98.4 102 18 136/65 (88) 99 MDM Medical Decision Making Medical Screen Exam Complete: Yes Emergency Medical Condition: Yes Differential Diagnosis Differential diagnosis including pain post surgery, phantom pain, infection, Narrative Course 32-year-old male with left leg stump pain status post BKA 2 weeks ago. Diagnosis Primary Impression: Left leg pain Additional Impression: Status post below knee amputation of left lower extremity Patient Instructions: General Instructions Additional Instructions: Mobic and tramadol as needed for pain. Follow-up with personal physician in Med/Other Pt SpecificInfo: Prescription(s) given Scripts Tramadol (Ultram) 50 Mg Tab 50 MG PO Q6H Y for PAIN, #10 TAB 0 Refills Prov: Andres Guido MD 08/23/17 Meloxicam (Mobic) 15 Mg Tab 15 MG PO DAILY for Pain, #30 TAB 0 Refills Prov: Andres Guido MD 08/23/17 Disposition: 01 DISCHARGE HOME Condition: Stable Andres Guido MD Aug 23, 2017 18:37
[2017-08-23 18:46] VITALS: BP 128/60
== END 2017-08-23 19:10 | disposition home or self-care (01) ==
LOC: NEPD 16:35
DX: M79.605 Pain in left leg (principal); Z89.512 Acquired absence of left leg below knee
CPT/HCPCS: 99283

== ENCOUNTER 2017-09-17 09:52 | Inpatient (IN) ==
[2017-09-17] MEDS ORDERED: Chlorhexidine Gluconate 2% 1 Pack (2 Cloths) TOPICAL SCH (10:45)
[2017-09-17] MEDS ORDERED: Metoprolol Tartrate 25 MG Tablet PO SCH (10:45)
[2017-09-17] MEDS ORDERED: Sodium Chlor 0.9% Inj 500 ML IV.SIG SCH (11:00)
[2017-09-17 11:40] LABS: Baso % (Auto) 0.7 % (0.0-2.0); Eos # (Auto) 0.2 th/mm3 (0.0-0.4); Eos % (Auto) 3.3 % (0.0-4.0); Hematocrit 36.1 % (39.0-51.0); Hemoglobin 12.3 gm/dL (13.0-17.0); Lymph # (Auto) 1.7 th/mm3 (1.0-4.8); Mean Corpuscular HGB Conc 34.1 % (32.0-36.0); Mean Corpuscular Hemoglobin 28.9 pg (27.0-34.0); Mean Corpuscular Volume 84.7 fL (80.0-100.0); Mean Platelet Volume 8.7 fL (7.0-11.0); Mono # (Auto) 0.6 th/mm3 (0.0-0.9); Mono % (Auto) 9.1 % (0.0-8.0); Neut # (Auto) 3.9 th/mm3 (1.8-7.7); Neut % (Auto) 59.9 % (16.0-70.0); Platelet Count 288 th/mm3 (150-450); Red Blood Count 4.26 mil/mm3 (4.50-5.90); Red Cell Distribution Width 15.1 % (11.6-17.2); White Blood Count 6.5 th/mm3 (4.0-11.0)
[2017-09-17] MEDS ORDERED: Lidocaine PF 1% Inj 5 ML Syringe INFILTRATN ONE (12:00)
[2017-09-17] MEDS ORDERED: fentaNYL Citrate Inj 100 MCG/2 ML Ampul ONE (15:13)
[2017-09-17] MEDS ORDERED: *morphine SULFATE 4 MG/ML PERIprocedure ONLY ONE (15:46)
--- NOTE | 2017-09-17 16:12 | MP ---
cc: Adam Haque MD DATE OF OPERATION: 09/17/2017 DATE OF SURGERY: 09/17/2017 PREOPERATIVE DIAGNOSIS: Left below-knee amputation dehiscence. POSTOPERATIVE DIAGNOSIS: Left below-knee amputation dehiscence. OPERATIVE PROCEDURE: Left below-knee amputation revision and closure. SURGEON: Adam Haque MD ANESTHESIA: General. ESTIMATED BLOOD LOSS: 20 mL. DESCRIPTION OF PROCEDURE: The patient was prepped and draped in usual fashion. At the lateral aspect of the closure, there is an eschar measuring about 1 cm in diameter and encompassing the lateral 30% of the incision. This one is excised with a 15 blade, sharply deepened down to the fascia and old even remotely abnormal-appearing tissue was removed. Nice muscle was exposed. Area irrigated with saline. Meticulous hemostasis obtained. The edges of the skin and subcutaneous tissue are undermined and brought together with 2-0 Prolenes. The patient tolerated the procedure well. MD SUZANNE Manzo/JAMARCUS , 03:07 PM , 04:10 PM
[2017-09-17] MEDS ORDERED: Morphine Sulfate Inj 2 MG/ML Vial ONE (16:48)
== END 2017-09-17 17:25 | disposition home or self-care (01) ==
LOC: HSDI 09:52
PROVIDERS: ADMIT Surgery; ATTEND Surgery
DX: T87.81 Dehiscence of amputation stump; Y83.5 Amputation of limb(s) as the cause of abnormal reaction of the patient, or of later complication, without mention of misadventure at the time of the procedure